=== PATIENT | female | born 1970 | race Caucasian/White ===

== ENCOUNTER → 2021-10-29 12:41 | Outpatient (CLI) | payer OTHER, MEDICAID, SELFPAY ==
--- NOTE | 2021-10-29 | PATH_ITS ---
Note [facility] Accession Number: [id number] TESTS RESULT FLAG UNITS REF RANGE LAB Clinician Provided Cytology Information No. of containers..01 Other (Miscellaneous) No. of containers..02 Previously Prepared Cytology Slide Source: LEFT THYROID NODULE DIAGNOSIS: LEFT THYROID NODULE NEGATIVE FOR MALIGNANT CELLS. B[place] CATEGORY II. SPECIMEN CONSISTS OF BENIGN FOLLICULAR CELLS, HEMOSIDERIN-LADEN MACROPHAGES, AND ABUNDANT COLLOID.THIS PATTERN IS CONSISTENT WITH A BENIGN FOLLICULAR NODULE. Pathologist ICD10: 01 E04.1 Clinical history: Right: Thyroid lobe measures 3.6 x 1.3 x 0.9 cm, and is homogeneous in echotexture. Left: Thyroid lobe measures 4.8 x 2.4 x 2.3 cm, and is homogenous in echotexture. Isthmus: 3.0 mm thick. IMPRESSION: New sub- cm right thyroid nodule, otherwise stable appearance of bilateral thyroid nodules. Signed out by: Ana Fleming MD, Pathologist NPI- [id number] Performed by: Goldy Sher, Duty Manager ([facility]) Gross description: 30 CC, COLORLESS, CLEAR RECIEVED: IN CYTOLYT WITH 6 ALCOHOL FIXED AND 6 QUICK STAINED SLIDES ALSO 1 RNA VIAL WAS RECEIVED. /VDU 10/30/2021 1243 Local FLAG LEGEND: L-Low Normal,H-High Normal,LL-Alert Low,HH-Alert High <-Panic Low,>-Panic High,A-Abnormal,AA-Critical Abnormal Performed at: 01 [facility] [address], [place] [address] Santiago Negron MD, Performed at: 01 [facility] [address], [place], [place] [id number] MD Santiago Negron MD Phone: [phone]
--- NOTE | 2021-10-29 | DI.US.S_ITS ---
PROCEDURE: US FINE NEEDLE ASPIRATION INDICATIONS: Nontoxic single thyroid nodule TECHNIQUE: The indications, alternatives, benefits, risks, and complications of the procedure were explained to the patient. Written informed consent was obtained and placed in the chart. The thyroid region was examined sonographically and a site was chosen for ultrasound guided percutaneous sampling. The skin was prepared and draped in the usual fashion, and anesthetized with 1% lidocaine infiltrated from the skin down to the thyroid gland. Multiple passes were then performed, with contents emptied into an appropriate pathology specimen container. A bandage was applied to the area of access at completion of the study. COMPARISON: [facility], US, US THYROID, 09/18/2021, 11:31. FINDINGS: Location(s) of lesion(s) sampled: Left lobe, mid-inferior. Nodule labeled as N5 on the previous exam. [place]: 25 and 22 gauge spinal needles. Number of passes: 6 Medications: 1% lidocaine for local anaesthesia. Complications: None. IMPRESSION: Successful ultrasound-guided thyroid nodule fine needle aspiration, with cytology results pending. Please see chart below for management recommendations based on cytology results. [facility] ReportingRecommendationsNon-diagnostic* Repeat US-guided FNA, with on-site cytology evaluation if possible. * Repeated non-diagnostic nodules without high suspicion US features: close observation vs surgical consult. * Consider surgery if nodule has high suspicion US features, grows >20% in 2 dimensions on followup, or patient has clinical risk factors for malignancy. Benign* If nodule has high suspicion US features: repeat US and FNA within 12 months. * If nodule has low to intermediate suspicion US features: repeat US at 12-24 months. If nodule grows (20% increase in at least 2 dimensions, with minimal increase of 2 mm or >50% change in volume), or development of new suspicious US features, then repeat FNA or continue followup. * If nodule has very low suspicion US features: followup US at >24 months. Atypia of undetermined significance, follicular lesion of undetermined significanceRepeat FNA, molecular testing, followup US, or surgical consult.Follicular neoplasm, suspicious for follicular neoplasmSurgical consult; also consider molecular testing. Suspicious for malignancySurgical consult.MalignantSurgical consult. Dictated by: Mani Meadows M.D. on 10/29/2021 at 16:18 Approved by: Mani Meadows M.D. on 10/29/2021 at 16:29
== END ==
PROVIDERS: Family Provider Family Medicine; PCP Nurse Practitioner Family; Referring Provider Nurse Practitioner Family; Visit Provider Nurse Practitioner Family
DX: E04.1 Nontoxic single thyroid nodule (principal)
CPT/HCPCS: 10005

== ENCOUNTER 2021-11-15 20:41 | Observation (INO) | payer OTHER, MEDICAID, SELFPAY ==
[2021-11-15] VITALS (13 sets, daily range): BP systolic 79–101; BP diastolic 43–66; PULSE 102–105; RESP 18–20; TEMP 36.5; O2SAT 94–100; BMI 39.2
--- NOTE | 2021-11-15 21:04 | DI.RAD.S_ITS ---
PROCEDURE: XR CHEST 1V INDICATIONS: chest pain TECHNIQUE: One view of the chest was acquired. COMPARISON: None. FINDINGS: Surgical changes and devices: None. Lungs and pleura: Lungs are clear. No pleural effusions or pneumothorax. Mediastinum: Mediastinal contours appear normal. Heart size is normal. Bones and chest wall: No suspicious bony lesions. Overlying soft tissues appear unremarkable. IMPRESSION: Normal for age, source of current chest pain symptoms is not seen. Dictated by: Graeme Cole M.D. on 11/15/2021 at 21:33 Approved by: Graeme Cole M.D. on 11/15/2021 at 21:33
[2021-11-15 21:16] LABS: Add Manual Diff / Slide Review NO; Basophils Absolute Auto 100 /uL (0-100); Basophils Percent Auto 1.1 % (0-2); Eosinophils Absolute Auto 300 /uL (0-450); Eosinophils Percent Auto 2.7 % (2-4); Hematocrit 36.7 % (36-46); Hemoglobin 12.2 g/dL (12.0-16.0); Lymphocytes Absolute Auto 2400 /uL (1100-4500); Lymphocytes Percent Auto 24.4 % (25-40); Mean Corpuscular HGB Conc 33.3 % (30-36); Mean Corpuscular Hemoglobin 30.4 PG (26-34); Mean Corpuscular Volume 91.3 fL (80-100); Monocytes Absolute Auto 700 /uL (0-900); Monocytes Percent Auto 6.8 % (3-14); Neutrophils Absolute Auto 6300 /uL (1500-7000); Platelet Count 241 X10^3/uL (150-400); Red Blood Cell Count 4.02 X10^6/uL (4.0-5.2); Red Cell Distribution Width 15.3 % (11.6-14.8); White Blood Cell Count 9.7 X10^3/uL (4.5-11.0)
[2021-11-15 21:20] LABS: Alanine Aminotransferase 26 IU/L (<35); Albumin Globulin Ratio 1.6 (1.0-2.8); Alkaline Phosphatase 101 U/L (38-126); Aspartate Aminotransferase 26 IU/L (14-36); BUN Creatinine Ratio 20.6 (6-22); Bilirubin Total 0.6 mg/dL (0.2-1.3); Blood Urea Nitrogen 49 mg/dL (7-17); Calcium 8.8 mg/dL (8.4-10.2); Carbon Dioxide 22 mmol/L (22-32); Chloride 102 mmol/L (98-107); Estimated Glomerular Filt Rate 24 mL/min (>60); Globulin 2.5 g/dL (1.7-4.1); Glucose 194 mg/dL (70-100); HEMOLYSIS 16 (0-50); Lipase 133 U/L (23-300); Magnesium 1.9 mg/dL (1.6-2.3); Potassium 4.9 mmol/L (3.4-5.1); Sodium 135 mmol/L (137-145); Total Protein 6.5 g/dL (6.3-8.2)
[2021-11-15] MEDS: ONDANSETRON 4 MG/2 ML INJ IV (21:20)
[2021-11-15] MEDS: diazePAM 10 MG/2 ML SYRINGE 5 MG IV (21:20)
[2021-11-15] MEDS: SODIUM CHLORIDE 0.9% 1,000 ML 1000 ML IV ×2 (21:20→23:11)
[2021-11-15 21:29] LABS: D Dimer 412 ng/mL (<230)
[2021-11-15 21:32] LABS: NT-proBNP (BNP-Adult 18+) 33 pg/mL (<125); Troponin I < 0.012 ng/mL (0.01-0.034)
--- NOTE | 2021-11-15 22:05 | ED_ITS ---
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 Apparently blood pressure was low and I was felt be appropriate to transfer her to [facility]. Initial blood pressure was 97/48 and with 900 cc total of fluid is up to 113/89. The patient is very vague in her complaints as well as timeline. She initially states that the headache started today than notes that it is from her chronic DJD and she has headaches frequently. She states that she has had chills but describes no cough or fevers. She describes her stomach cramping and says she has dark diarrhea last night. She notes exertional dyspnea increasing but can not describe if it is increasing over the last 24 hours or the last 24 weeks. 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 She has not noted palpitations or chest pain, no lower extremity edema Related Data Home Medications Medication Instructions Recorded Confirmed [aderall] ##0 10/08/16 [nabumatin] ##0 10/08/16 Allergies Allergy/AdvReac Type Severity Reaction Status Date / Time latex [LATEX] Allergy Mild RASH Verified 11/15/21 21:03 Penicillins [PENICILLINS] Allergy Mild RASH Verified 11/15/21 21:03 sulfamethoxazole Allergy Mild NAUSEA AND Verified 11/15/21 21:03 [SULFAMETHOXAZOLE] VOMITING Review of Systems Review of Systems Narrative: Remainder of complete review of systems is otherwise unremarkable except for that included in the HPI. Patient History Medical History (Updated 11/16/21 @ 00:24 by Jhoana Rowe MD) Degenerative joint disease of cervical spine Diabetes Hypertension Surgical History (Updated 11/15/21 @ 22:11 by Jhoana Rowe MD) History of appendectomy Social History Smoking Status: Former smoker Smoking Status: Former smoker Substance Use Type: does not use Exam Initial Vital Signs Initial Vital Signs: Vital Signs Pulse Rate 105 H 11/15/21 20:55 Pulse Oximetry 99 11/15/21 20:55 General: Healthy appearing, in mild distress and anxious. HEENT: Moist mucous membranes, normal sclera with reactive pupils, Neck: supple Respiratory: Lungs are clear to auscultation, no wheezing no rales no rhonchi. Full and symmetrical air movement Cardiac: Regular rate and rhythm no murmurs no bruits Abdomen: Soft, mildly distended but nontender, good bowel tones, no flank pain Skin: Warm and dry, no rashes Neurologic: Grossly neurologically intact with no obvious asymmetries or abnormalities Extremities: No trauma, well perfused, no asymmetric swelling Psych: Cooperative, appropriate insight and affect Course Orders Ordered: ED Orders 11/15/21 21:00 Complete Blood Count AUTO DIFF Stat Comprehensive Metabolic Panel Stat D Dimer Stat Lipase Stat Magnesium Stat NT-proBNP (BNP-Adult 18+) Stat Troponin I Stat 11/15/21 21:03 Urinalysis and Microscopic Stat 11/15/21 21:04 XR chest 1V Stat EKG-12 Lead Stat 11/15/21 21:08 Consult to [employer]ATOR - [employer] Stat 11/15/21 22:11 COVID19 -Nasal RAPID/Pre-Proc Stat 11/15/21 22:22 CT abdomen pelvis wo con Stat 11/15/21 23:19 CT head/brain wo con Stat Hydromorphone HCl (Hydromorphone 0.5 Mg Inj) 0.5 mg IV Q15MIN PRN PRN Reason: Pain, Last Admin: 11/15/21 23:51 Dose: 0.5 mg Documented By: JAMIA Discontinued Medications Diazepam (Diazepam 10 Mg/2 Ml Syringe) 5 mg IV NOW ONE Stop: 11/15/21 21:10 Last Admin: 11/15/21 21:20 Dose: 5 mg Documented By: JAMIA Sodium Chloride (Normal Saline 0.9%) 1,000 mls @ 1,000 mls/hr IV BOLUS ONE Stop: 11/15/21 22:02 Last Infusion: 11/15/21 23:11 Dose: 0 mls/hr Documented By: Admin: 11/15/21 21:20 Dose: 1,000 mls/hr Documented By: JAMIA Sodium Chloride (Normal Saline 0.9%) 1,000 mls @ 1,000 mls/hr IV BOLUS ONE Stop: 11/15/21 23:46 Last Admin: 11/15/21 23:11 Dose: 1,000 mls/hr Documented By: JAMIA Lorazepam (Lorazepam 2 Mg/Ml Inj) 0.5 mg IV NOW ONE Stop: 11/15/21 21:04 Last Admin: 11/15/21 21:10 Dose: Not Given Documented By: JAMIA Ondansetron HCl (Ondansetron 4 Mg/2 Ml Inj) 4 mg IV NOW ONE Stop: 11/15/21 21:04 Last Admin: 11/15/21 21:20 Dose: 4 mg Documented By: JAMIA Vital Signs Vital signs: Vital Signs - 8 hr 11/15/21 21:04 11/15/21 20:55 11/15/21 21:00 Temperature 97.7 F Pulse Rate 105 H 105 H Respiratory Rate 18 Blood Pressure 101/66 97/53 L Pulse Oximetry 100 99 Oxygen Delivery Method Room Air 11/15/21 21:00 11/15/21 21:30 11/15/21 21:30 Temperature Pulse Rate 104 H 103 H Respiratory Rate 20 Blood Pressure 94/52 L Pulse Oximetry 97 95 Oxygen Delivery Method 11/15/21 22:00 11/15/21 22:00 11/15/21 22:01 Temperature Pulse Rate 103 H Respiratory Rate Blood Pressure 79/43 L 88/47 L Pulse Oximetry 95 Oxygen Delivery Method 11/15/21 22:01 Temperature Pulse Rate 103 H Respiratory Rate Blood Pressure Pulse Oximetry 94 Oxygen Delivery Method Medical Decision Making Lab Data Result diagrams: 11/15/21 21:00 11/15/21 21:00 Labs: Lab Results 11/15/21 11/15/21 11/15/21 Range/Units 21:00 21:00 21:00 WBC 9.7 (4.5-11.0) X10^3/uL RBC 4.02 (4.0-5.2) X10^6/uL Hgb 12.2 (12.0-16.0) g/dL Hct 36.7 (36-46) % MCV 91.3 (80-100) fL MCH 30.4 (26-34) PG MCHC 33.3 (30-36) % RDW 15.3 H (11.6-14.8) % Plt Count 241 (150-400) X10^3/uL Neut % (Auto) 65.0 (50-75) % Lymph % (Auto) 24.4 L (25-40) % [place] % (Auto) 6.8 (3-14) % Eos % (Auto) 2.7 (2-4) % Baso % (Auto) 1.1 (0-2) % Neut # (Auto) 6300 (0931-5727) /uL Lymph # (Auto) 2400 (0233-8678) /uL [place] # (Auto) 700 (0-900) /uL Eos # (Auto) 300 (0-450) /uL Baso # (Auto) 100 (0-100) /uL D-Dimer 412 H (<230) ng/mL Sodium 135 L (137-145) mmol/L Potassium 4.9 (3.4-5.1) mmol/L Chloride 102 (98-107) mmol/L Carbon Dioxide 22 (22-32) mmol/L BUN 49 H (7-17) mg/dL Creatinine 2.38 H (0.52-1.04) mg/dL Estimated GFR 24 L (>60) mL/min BUN/Creatinine Ratio 20.6 (6-22) Glucose 194 H (70-100) mg/dL Calcium 8.8 (8.4-10.2) mg/dL Magnesium 1.9 (1.6-2.3) mg/dL Total Bilirubin 0.6 (0.2-1.3) mg/dL AST 26 (14-36) IU/L ALT 26 (<35) IU/L Alkaline Phosphatase 101 (38-126) U/L Troponin I < 0.012 (0.01-0.034) ng/mL NT-Pro-B Natriuret Pep 33 (<125) pg/mL Total Protein 6.5 (6.3-8.2) g/dL Albumin 4.0 (3.5-5.0) g/dL Globulin 2.5 (1.7-4.1) g/dL Albumin/Globulin Ratio 1.6 (1.0-2.8) Lipase 133 (23-300) U/L SARS-CoV-2 (PCR) (Negative) 11/15/21 Range/Units 22:11 WBC (4.5-11.0) X10^3/uL RBC (4.0-5.2) X10^6/uL Hgb (12.0-16.0) g/dL Hct (36-46) % MCV (80-100) fL MCH (26-34) PG MCHC (30-36) % RDW (11.6-14.8) % Plt Count (150-400) X10^3/uL Neut % (Auto) (50-75) % Lymph % (Auto) (25-40) % [place] % (Auto) (3-14) % Eos % (Auto) (2-4) % Baso % (Auto) (0-2) % Neut # (Auto) (2888-5758) /uL Lymph # (Auto) (4817-4677) /uL [place] # (Auto) (0-900) /uL Eos # (Auto) (0-450) /uL Baso # (Auto) (0-100) /uL D-Dimer (<230) ng/mL Sodium (137-145) mmol/L Potassium (3.4-5.1) mmol/L Chloride (98-107) mmol/L Carbon Dioxide (22-32) mmol/L BUN (7-17) mg/dL Creatinine (0.52-1.04) mg/dL Estimated GFR (>60) mL/min BUN/Creatinine Ratio (6-22) Glucose (70-100) mg/dL Calcium (8.4-10.2) mg/dL Magnesium (1.6-2.3) mg/dL Total Bilirubin (0.2-1.3) mg/dL AST (14-36) IU/L ALT (<35) IU/L Alkaline Phosphatase (38-126) U/L Troponin I (0.01-0.034) ng/mL NT-Pro-B Natriuret Pep (<125) pg/mL Total Protein (6.3-8.2) g/dL Albumin (3.5-5.0) g/dL Globulin (1.7-4.1) g/dL Albumin/Globulin Ratio (1.0-2.8) Lipase (23-300) U/L SARS-CoV-2 (PCR) Negative (Negative) Imaging Data Chest x-ray: Radiologist's Impression: FINDINGS:? ? Surgical changes and devices:? None.? ? Lungs and pleura:? Lungs are clear.? No pleural effusions or pneumothorax.? ? Mediastinum:? Mediastinal contours appear normal.? Heart size is normal.? ? Bones and chest wall:? No suspicious bony lesions.? Overlying soft tissues appear unremarkable.? ? IMPRESSION:? Normal for age, source of current chest pain symptoms is not seen. ? ? Dictated by: Graeme Cole M.D. on 11/15/2021 at 21:33 ? ? CT scan - head: Radiologist's Impression: FINDINGS:? Image quality:? Excellent.? ? CSF spaces:? Basal cisterns are patent.? No extra-axial fluid collections.? Ventricles are normal in size and shape.? ? Brain:? No midline shift.? No intracranial masses or hemorrhage.? Gallegos-white matter interface is normal.? ? Skull and face:? Calvarium and visualized facial bones are intact, without suspicious lesions.? ? Sinuses:? Visualized sinuses and mastoids are clear.? ? IMPRESSION:? Normal for age, source of current pain symptoms is not seen. ? ? Dictated by: Graeme Cole M.D. on 11/16/2021 at 0:08 ? ? CT scan - abdomen/pelvis: Radiologist's Impression: FINDINGS:? Image quality:? Excellent.? ? CSF spaces:? Basal cisterns are patent.? No extra-axial fluid collections.? Ventricles are normal in size and shape.? ? Brain:? No midline shift.? No intracranial masses or hemorrhage.? Gallegos-white matter interface is normal.? ? Skull and face:? Calvarium and visualized facial bones are intact, without suspicious lesions.? ? Sinuses:? Visualized sinuses and mastoids are clear.? ? IMPRESSION:? Normal for age, source of current pain symptoms is not seen. ? ? Dictated by: Graeme Cole M.D. on 11/16/2021 at 0:08 ? ? MDM Narrative Medical decision making narrative: 51-year-old woman with abdominal pain dizziness hypotension and difficulty in pending down timing of her overall symptoms. Continues to be increasingly hypotensive with creatinine elevated at 2.38. I have no comparison labs and she is not sure where the lab work from work is is sent for follow-up. Given her continued cramping pain the recurrent hypotension despite fluid boluses will moved to CT scanning. There is no sign of active bleeding. D-dimer is elevated at 412 however at 51 her D-dimer can correct up to 510 and still be within normal ranges. As her new kidney failure was identified, contrast for PE study is not going to be appropriate from the emergency department. This point, I still do not have a full understanding for her orthostasis, acute kidney injury a near syncopal episode. There is no evidence of overwhelming infection, acute coronary syndrome pulmonary embolism, internal hemorrhage. Have suggested that she be admitted for continued IV hydration and further evaluation with repeat blood draw tomorrow morning to check on renal function. Case is reviewed with Dr. Adams, hospitalist and she is admitted to the hospitalist service. Recommendations reviewed with patient and questions are answered. She is safe for transfer to floor Discharge Plan Departure Patient Disposition: Admitted as Observation Clinical Impression: Syncope due to orthostatic hypotension, Acute dehydration, Acute kidney injury Prescriptions: No Action [aderall] Qty: 0 [nabumatin] Qty: 0 Referrals: Diana Harris ARNP [Primary Care Provider] -
--- NOTE | 2021-11-15 22:22 | DI.CT.S_ITS ---
PROCEDURE: CT ABDOMEN PELVIS WO CON INDICATIONS: abdominal pain, hypotension, new acute renal failure TECHNIQUE: Noncontrast 5 mm thick sections acquired from the diaphragms to the symphysis. 5 mm coronal and sagittal reformats were then performed. For radiation dose reduction, the following was used: automated exposure control, adjustment of mA and/or kV according to patient size. COMPARISON: None. FINDINGS: Image quality: Limited by the absence of both oral and intravenous contrast. ABDOMEN: Lung bases: Lung bases are clear. Heart size is normal. Solid organs: Liver is normal in size. Gallbladder appears normal . Pancreas is normal in contours. Spleen is normal in size. No adrenal nodules. Kidneys are normal in size, without hydronephrosis or nephrolithiasis. Peritoneum and bowel: Unenhanced bowel loops demonstrate normal wall thickness and caliber. No free fluid or air. Nodes and vessels: No retroperitoneal or mesenteric adenopathy by size criteria. Aorta and inferior vena cava are normal in caliber. Miscellaneous: No ventral hernias. PELVIS: Genitourinary: Bladder wall thickness is normal. Miscellaneous: No inguinal hernias or adenopathy. Multiple surgical clips right lower quadrant suggest prior appendectomy. Bones: No suspicious bony lesions. No vertebral body compression fractures. IMPRESSION: No hydronephrosis or nephrolithiasis found. No acute disease over the abdomen and pelvis is suspected. Probable prior appendectomy given the pattern of surgical clips at the right lower quadrant. Dictated by: Graeme Cole M.D. on 11/16/2021 at 0:10 Approved by: Graeme Cole M.D. on 11/16/2021 at 0:11
[2021-11-15 22:31] LABS: COVID19 -Nasal RAPID Negative (Negative)
--- NOTE | 2021-11-15 23:19 | DI.CT.S_ITS ---
PROCEDURE: CT HEAD/BRAIN WO CON INDICATIONS: pain TECHNIQUE: Noncontrast 4.5 mm thick angled axial sections acquired from the foramen magnum to the vertex, with coronal and sagittal reformats. For radiation dose reduction, the following was used: automated exposure control, adjustment of mA and/or kV according to patient size. COMPARISON: None. FINDINGS: Image quality: Excellent. CSF spaces: Basal cisterns are patent. No extra-axial fluid collections. Ventricles are normal in size and shape. Brain: No midline shift. No intracranial masses or hemorrhage. Gallegos-white matter interface is normal. Skull and face: Calvarium and visualized facial bones are intact, without suspicious lesions. Sinuses: Visualized sinuses and mastoids are clear. IMPRESSION: Normal for age, source of current pain symptoms is not seen. Dictated by: Graeme Cole M.D. on 11/16/2021 at 0:08 Approved by: Graeme Cole M.D. on 11/16/2021 at 0:09
[2021-11-15] MEDS: HYDROMORPHONE 0.5 MG INJ IV (23:51)
[2021-11-16] VITALS (19 sets, daily range): BP systolic 87–137; BP diastolic 48–92; PULSE 104–119; RESP 17–20; TEMP 35.8–36.6; O2SAT 91–98; BMI 39.2
[2021-11-16] MEDS: SODIUM CHLORIDE 0.9% 1,000 ML 200 ML IV (00:35)
--- NOTE | 2021-11-16 02:40 | PC.NURSE ---
pt assisted up to the bsc
[2021-11-16] MEDS: SODIUM CHLORIDE 0.9% 1,000 ML 1000 ML IV (03:14)
[2021-11-16 03:26] LABS: Creatinine Urine Random 83.3 mg/dL; Sodium Urine Random 66 mmol/L (30-90)
[2021-11-16] MEDS: ACETAMINOPHEN 325 MG TABLET 650 MG PO (03:26)
[2021-11-16] MEDS: SODIUM CHLORIDE 0.9% 1,000 ML 250 ML IV ×3 (04:30→14:01)
--- NOTE | 2021-11-16 05:12 | DI.ECHO.S_ITS ---
[facility]---------+ [facility] +---------+ : : [address] [place] [place] : : : : [id number] : : : : Phone: [phone]+ Echocardiogram Report + + :Name: JULIO ELENA Study Date: 11/16/2021 Height: 23.5 in: :[facility] ReadingLocation: Weight: 200 lb : : Gender: Female BSA: 0.95 m2 : :: 1970 Age: 51 yrs : :Reason For Study: HYPOTENSION, TACHYCARDIA : : Performed By: Ashley Ellis : :Referring: LEIGHANN DE LUNA : + + Interpretation Summary The patient was in sinus tachycardia with heart rates between 113-116 bpm during the exam. The left ventricle is normal in size and wall thickness. The ejection fraction is estimated to be 65-70%. The right ventricle is not well visualized. Visually RV does not appears to be dilated however RV function appears to be decreased. Cannot comment upon pulmonary artery systolic pressure however Doppler profile across pulmonary valve suggest possibility of pulmonary hypertension. In view of sinus tachycardia, decreased RV function and possibility of pulmonary hypertension, consider work-up to rule out pulmonary embolism. There is mild tricuspid regurgitation. The IVC is dilated (diameter is greater than 2.1 cm) and it collapses less than 50% with a sniff. This suggests a high right atrial pressure of 15 mm Hg. Procedure: A two-dimensional transthoracic echocardiogram with color flow and Doppler was performed. The study quality was technically difficult. Patient is unable to cooperate and is supine for the exam. There is no prior echocardiogram noted for this patient. The patient was in sinus tachycardia with heart rates between 113-116 bpm during the exam. Left Ventricle: The left ventricle is normal in size and wall thickness. There is no thrombus. The ejection fraction is estimated to be 65-70%. Septal motion is consistent with conduction abnormality. Diastolic function could not be accurately assessed due to tachycardia. Right Ventricle: The right ventricle is not well visualized. Visually RV does not appears to be dilated however RV function appears to be decreased. Cannot comment upon pulmonary artery systolic pressure however Doppler profile across pulmonary valve suggest possibility of pulmonary hypertension. In view of sinus tachycardia, decreased RV function and possibility of pulmonary hypertension, consider work-up to rule out pulmonary embolism. Atria: The left atrium is not well visualized. Right atrium not well visualized. There is no Doppler evidence for an interatrial shunt. Mitral Valve: There is mild mitral annular calcification. There is trace mitral regurgitation. Aortic Valve: The aortic valve opens well. There is mild aortic valve sclerosis. The aortic valve is not well visualized. There is no aortic valve stenosis. No aortic regurgitation is present. Tricuspid Valve: The tricuspid valve is not well visualized. There is mild tricuspid regurgitation. Pulmonary artery pressures cannot be estimated because of the lack of a measurable TR jet velocity. Pulmonic Valve: The pulmonic valve is not well visualized. Great Vessels: The aortic root is normal size. The ascending aorta is normal in size. The aortic arch could not be visualized. The pulmonary is not well visualized. The IVC is dilated (diameter is greater than 2.1 cm) and it collapses less than 50% with a sniff. This suggests a high right atrial pressure of 15 mm Hg. Pericardium/ Pleura There is a trivial pericardial effusion noted. There are no echocardiographic indications of cardiac tamponade. There is no pleural effusion. MMode/2D Measurements & Calculations LVIDd: 4.1 cm LVOT diam: 2.3 cm LVIDs: 2.9 cm Ao root diam: 3.3 cm FS: 29.5 % asc Aorta Diam: 3.0 cm EPSS: 0.32 cm IVSd: 0.89 cm LVPWd: 0.89 cm LV myers. diameter/BSA (cm/m^2): 4.3 LV sys. diameter/BSA (cm/m^2): 3.0 IVC diam: 1.8 cm Doppler Measurements & Calculations Ao V2 max: 107.3 cm/sec LVOT Max Jesus: 76.7 cm/sec Ao V2 mean: 75.9 cm/sec LV V1 max P.4 mmHg Ao max P.6 mmHg LV V1 VTI: 9.9 cm Ao mean P.4 mmHg RACHEL(I,D): 2.3 cm2 Ao V2 VTI: 17.4 cm RACHEL(V,D): 2.9 cm2 sev ratio: 0.57 RACHEL indexed to BSA (cm^2/m^2): 2.4 TR max jesus: 194.8 cm/sec SV(LVOT): 40.4 ml TR max P.2 mmHg Reading Physician:12:43 PM
--- NOTE | 2021-11-16 05:14 | PM.HP.1 ---
History of Present Illness History of Present Illness Date Patient Seen: 11/16/21 Time Patient Seen: 04:00 Chief complaint: hypotension/headache Narrative: Ms. Felix is a 51W with PMH fibromyalgia, hx PE/DVT multiple times, HTN, Type 2 DM who presents with vague symptoms. The patient can not provide a clear story to me as to why she is here. She on open ended questioning states she was short of breath Wednesday and that that's about it. In the ED it was noted she was in a store and was complaining of headache, stomach pain and dizziness. Upon asking that she does confirm. She states she thought she ate some bad food on Wednesday and she had diarrhea and vomiting. She felt quite thirsty. She has chronic pain and takes nabumetone and oxycodone. In addition to this she is also occasionally takes acyclovir for HSV, amitryptiline. She also takes gabapentin for pain. And she takes lisinopril-HCTZ. She does not think any of these medications are new. She denies taking additional NSAIDs above these. She has no fevers/chills. No chest pain. She is currently not short of breath. Looking through PCP records she has chronic tachycardia in the 100s, with etiology still not clear. In the ED workup was done, vitals notable for normal temp, tachycardia in the 100s, blood pressure in the systolic 80s-90s. Labs notable for WBC 9.7, hgb 12.2, plts 241. BUN 49, creatinine 2.38. D-dimer 412. Troponin negative. COVID negative. Chest xray negative. CT head negative. CT abdomen/pelvis without contrast with no acute process. She was ordered for IV fluids and admitted for further treatment. Patient History Medical History Degenerative joint disease of cervical spine Diabetes Hypertension Surgical History History of appendectomy Family & Social History Social History: household members none Prior Living Arrangements RV Safety & Behavioral: Feels Safe in Current Yes Environment Been Physically Hurt or No Threatened By a Person Tobacco & Substance use: Smoking Status Former smoker alcohol intake never alcohol intake frequency holiday/special occasion Substance Use Type does not use Meds Home Medications and Allergies Home Medications Medication Instructions Recorded Confirmed Type [nabumatin] 500 mg PO BID ##0 10/08/16 11/16/21 History amitriptyline 50 mg tablet 50 tab PO 3XD insomnia 11/16/21 11/16/21 History apixaban 5 mg tablet (Eliquis) 5 tab PO BID 11/16/21 11/16/21 History atorvastatin 20 mg tablet 20 tab PO BEDTIME 11/16/21 11/16/21 History azelastine 137 mcg (0.1 %) nasal 137 spray intranasal PRN PRN 11/16/21 11/16/21 History spray aerosol Allergy Symptoms citalopram 40 mg tablet 40 tab PO DAILY 11/16/21 11/16/21 History empagliflozin 10 mg tablet 10 tab PO DAILY 11/16/21 11/16/21 History (Jardiance) gabapentin 300 mg capsule 900 cap PO QAM 11/16/21 11/16/21 History gabapentin 300 mg tablet 1,800 mg PO BEDTIME 11/16/21 11/16/21 History loratadine 10 mg tablet (Allergy 10 tab PO DAILY allergy 11/16/21 11/16/21 History Relief (loratadine)) oxycodone 5 mg tablet 5 tab PO Q6H pain 11/16/21 11/16/21 History propranolol 10 mg tablet 10 tab PO TID PRN Anxiety 11/16/21 11/16/21 History sitagliptin 25 mg tablet (Januvia) 25 tab PO DAILY 11/16/21 11/16/21 History tizanidine 2 mg tablet 2 tab PO Q8H PRN Muscle Spasm 11/16/21 11/16/21 History Allergies Allergy/AdvReac Type Severity Reaction Status Date / Time latex [LATEX] Allergy Mild RASH Verified 11/15/21 21:03 Penicillins [PENICILLINS] Allergy Mild RASH Verified 11/15/21 21:03 sulfamethoxazole Allergy Mild NAUSEA AND Verified 11/15/21 21:03 [SULFAMETHOXAZOLE] VOMITING Review of Systems Review of Systems Narrative: 14 systems reviewed and negative aside from what is noted in HPI Exam Vital Signs (past 8 hours): - 11/15/21 21:30 11/15/21 21:30 11/15/21 22:00 Temperature Pulse Rate 103 H Pulse Rate [Orthostatic Lying] Pulse Rate [Orthostatic Sitting] Pulse Rate [Orthostatic Standing] Respiratory Rate Blood Pressure 94/52 L 79/43 L Blood Pressure [Orthostatic Lying] Blood Pressure [Orthostatic Sitting] Blood Pressure [Orthostatic Standing] Pulse Oximetry 95 Oxygen Delivery Method Oxygen Flow Rate 11/15/21 22:00 11/15/21 22:01 11/15/21 22:01 Temperature Pulse Rate 103 H 103 H Pulse Rate [Orthostatic Lying] Pulse Rate [Orthostatic Sitting] Pulse Rate [Orthostatic Standing] Respiratory Rate Blood Pressure 88/47 L Blood Pressure [Orthostatic Lying] Blood Pressure [Orthostatic Sitting] Blood Pressure [Orthostatic Standing] Pulse Oximetry 95 94 Oxygen Delivery Method Oxygen Flow Rate 11/15/21 22:15 11/15/21 22:15 11/15/21 22:30 Temperature Pulse Rate 102 H Pulse Rate [Orthostatic Lying] Pulse Rate [Orthostatic Sitting] Pulse Rate [Orthostatic Standing] Respiratory Rate Blood Pressure 85/47 L 86/49 L Blood Pressure [Orthostatic Lying] Blood Pressure [Orthostatic Sitting] Blood Pressure [Orthostatic Standing] Pulse Oximetry 95 Oxygen Delivery Method Oxygen Flow Rate 11/15/21 22:30 11/15/21 22:45 11/15/21 22:45 Temperature Pulse Rate 103 H 104 H Pulse Rate [Orthostatic Lying] Pulse Rate [Orthostatic Sitting] Pulse Rate [Orthostatic Standing] Respiratory Rate Blood Pressure 88/50 L Blood Pressure [Orthostatic Lying] Blood Pressure [Orthostatic Sitting] Blood Pressure [Orthostatic Standing] Pulse Oximetry 96 96 Oxygen Delivery Method Oxygen Flow Rate 11/15/21 23:00 11/15/21 23:00 11/15/21 23:15 Temperature Pulse Rate 103 H Pulse Rate [Orthostatic Lying] Pulse Rate [Orthostatic Sitting] Pulse Rate [Orthostatic Standing] Respiratory Rate Blood Pressure 91/51 L 95/50 L Blood Pressure [Orthostatic Lying] Blood Pressure [Orthostatic Sitting] Blood Pressure [Orthostatic Standing] Pulse Oximetry 98 Oxygen Delivery Method Oxygen Flow Rate 11/15/21 23:15 11/15/21 23:30 11/15/21 23:30 Temperature Pulse Rate 102 H 103 H Pulse Rate [Orthostatic Lying] Pulse Rate [Orthostatic Sitting] Pulse Rate [Orthostatic Standing] Respiratory Rate Blood Pressure 94/53 L Blood Pressure [Orthostatic Lying] Blood Pressure [Orthostatic Sitting] Blood Pressure [Orthostatic Standing] Pulse Oximetry 99 99 Oxygen Delivery Method Oxygen Flow Rate 11/15/21 23:45 11/15/21 23:45 11/16/21 00:05 Temperature Pulse Rate 104 H 104 H Pulse Rate [Orthostatic Lying] Pulse Rate [Orthostatic Sitting] Pulse Rate [Orthostatic Standing] Respiratory Rate Blood Pressure 101/53 L Blood Pressure [Orthostatic Lying] Blood Pressure [Orthostatic Sitting] Blood Pressure [Orthostatic Standing] Pulse Oximetry 98 98 Oxygen Delivery Method Oxygen Flow Rate 11/16/21 00:06 11/16/21 00:06 11/16/21 00:15 Temperature Pulse Rate 105 H Pulse Rate [Orthostatic Lying] Pulse Rate [Orthostatic Sitting] Pulse Rate [Orthostatic Standing] Respiratory Rate Blood Pressure 101/59 L 100/51 L Blood Pressure [Orthostatic Lying] Blood Pressure [Orthostatic Sitting] Blood Pressure [Orthostatic Standing] Pulse Oximetry 97 Oxygen Delivery Method Oxygen Flow Rate 11/16/21 00:15 11/16/21 00:30 11/16/21 00:30 Temperature Pulse Rate 108 H 105 H Pulse Rate [Orthostatic Lying] Pulse Rate [Orthostatic Sitting] Pulse Rate [Orthostatic Standing] Respiratory Rate Blood Pressure 87/50 L Blood Pressure [Orthostatic Lying] Blood Pressure [Orthostatic Sitting] Blood Pressure [Orthostatic Standing] Pulse Oximetry 94 98 Oxygen Delivery Method Oxygen Flow Rate 11/16/21 00:45 11/16/21 00:45 11/16/21 01:00 Temperature Pulse Rate 108 H 109 H Pulse Rate [Orthostatic Lying] Pulse Rate [Orthostatic Sitting] Pulse Rate [Orthostatic Standing] Respiratory Rate Blood Pressure 92/53 L Blood Pressure [Orthostatic Lying] Blood Pressure [Orthostatic Sitting] Blood Pressure [Orthostatic Standing] Pulse Oximetry 94 91 Oxygen Delivery Method Oxygen Flow Rate 11/16/21 01:00 11/16/21 01:15 11/16/21 01:15 Temperature Pulse Rate 109 H Pulse Rate [Orthostatic Lying] Pulse Rate [Orthostatic Sitting] Pulse Rate [Orthostatic Standing] Respiratory Rate Blood Pressure 88/51 L 103/48 L Blood Pressure [Orthostatic Lying] Blood Pressure [Orthostatic Sitting] Blood Pressure [Orthostatic Standing] Pulse Oximetry 92 Oxygen Delivery Method Oxygen Flow Rate 11/16/21 01:30 11/16/21 01:30 11/16/21 01:45 Temperature Pulse Rate 110 H 108 H Pulse Rate [Orthostatic Lying] Pulse Rate [Orthostatic Sitting] Pulse Rate [Orthostatic Standing] Respiratory Rate Blood Pressure 100/54 L Blood Pressure [Orthostatic Lying] Blood Pressure [Orthostatic Sitting] Blood Pressure [Orthostatic Standing] Pulse Oximetry 93 94 Oxygen Delivery Method Oxygen Flow Rate 11/16/21 01:45 11/16/21 02:00 11/16/21 02:00 Temperature Pulse Rate 107 H Pulse Rate [Orthostatic Lying] Pulse Rate [Orthostatic Sitting] Pulse Rate [Orthostatic Standing] Respiratory Rate Blood Pressure 111/55 L 105/55 L Blood Pressure [Orthostatic Lying] Blood Pressure [Orthostatic Sitting] Blood Pressure [Orthostatic Standing] Pulse Oximetry 94 Oxygen Delivery Method Oxygen Flow Rate 11/16/21 02:15 11/16/21 02:15 11/16/21 02:55 Temperature Pulse Rate 107 H Pulse Rate [Orthostatic Lying] 113 H Pulse Rate [Orthostatic Sitting] 109 H Pulse Rate [Orthostatic Standing] 115 H Respiratory Rate Blood Pressure 97/54 L Blood Pressure [Orthostatic Lying] 92/60 Blood Pressure [Orthostatic Sitting] 113/72 Blood Pressure [Orthostatic Standing] 99/55 L Pulse Oximetry 95 Oxygen Delivery Method Oxygen Flow Rate 11/16/21 02:55 11/16/21 01:42 Temperature 96.8 F L Pulse Rate 114 H Pulse Rate [Orthostatic Lying] Pulse Rate [Orthostatic Sitting] Pulse Rate [Orthostatic Standing] Respiratory Rate 20 Blood Pressure 92/60 Blood Pressure [Orthostatic Lying] Blood Pressure [Orthostatic Sitting] Blood Pressure [Orthostatic Standing] Pulse Oximetry 97 Oxygen Delivery Method Room Air Oxygen Flow Rate 0 Oxygen Delivery Method Room Air Oxygen Flow Rate 0 Narrative Exam Narrative: GEN: mild distress from pain HEENT: dry mucous membranes, PERRL NECK: trachea midline, no JVD CV: tachcyardic, no murmurs PULM: clear bilaterally, no wheezes, rhonchi, rales ABD: soft, nontender, nondistended, no organomegaly EXT: warm and well perfused, with no edema NEURO: awake, alert, oriented, no focal deficits, no nuchal rigidity Objective Labs Result Diagrams: 11/15/21 21:00 11/15/21 21:00 Labs: Laboratory Results - last 24 hr 11/15/21 11/15/21 11/15/21 21:00 21:00 21:00 WBC 9.7 RBC 4.02 Hgb 12.2 Hct 36.7 MCV 91.3 MCH 30.4 MCHC 33.3 RDW 15.3 H Plt Count 241 Neut % (Auto) 65.0 Lymph % (Auto) 24.4 L [place] % (Auto) 6.8 Eos % (Auto) 2.7 Baso % (Auto) 1.1 Neut # (Auto) 6300 Lymph # (Auto) 2400 Perkins # (Auto) 700 Eos # (Auto) 300 Baso # (Auto) 100 D-Dimer 412 H Sodium 135 L Potassium 4.9 Chloride 102 Carbon Dioxide 22 BUN 49 H Creatinine 2.38 H Estimated GFR 24 L BUN/Creatinine Ratio 20.6 Glucose 194 H Calcium 8.8 Magnesium 1.9 Total Bilirubin 0.6 AST 26 ALT 26 Alkaline Phosphatase 101 Troponin I < 0.012 NT-Pro-B Natriuret Pep 33 Total Protein 6.5 Albumin 4.0 Globulin 2.5 Albumin/Globulin Ratio 1.6 Lipase 133 Ur Random Sodium Urine Creatinine SARS-CoV-2 (PCR) 11/15/21 11/16/21 22:11 03:07 WBC RBC Hgb Hct MCV MCH MCHC RDW Plt Count Neut % (Auto) Lymph % (Auto) Perkins % (Auto) Eos % (Auto) Baso % (Auto) Neut # (Auto) Lymph # (Auto) Perkins # (Auto) Eos # (Auto) Baso # (Auto) D-Dimer Sodium Potassium Chloride Carbon Dioxide BUN Creatinine Estimated GFR BUN/Creatinine Ratio Glucose Calcium Magnesium Total Bilirubin AST ALT Alkaline Phosphatase Troponin I NT-Pro-B Natriuret Pep Total Protein Albumin Globulin Albumin/Globulin Ratio Lipase Ur Random Sodium 66 Urine Creatinine 83.3 SARS-CoV-2 (PCR) Negative Assessment & Plan Assessment & Plan narrative: Ms. Felix is a 51W with PMH HTN, DM, fibromyalgia who presents with multiple concerns found to be hypotensive. 1. Hypotension -etiology not certain -doubt infection no fever, normal wbc -suspect hypovolemia secondary to possible recent GI illness in setting of continued BP med use -continue IV fluids as patient clinically dehydrated -hold off on antibiotics -hold lisinopril-hctz -ordered ECHO, doubt pericardial effusion, but rule out with ECHO -with history of PE and vague complaints of sob ordered VQ scan, but is on anticoagulation so suspect this is less likely -check AM cortisol 2. Tachycardia -per PCP notes, this is chronic issue -regardless continue IV fluid resuscitation -rule out PE with VQ scan -check tsh 3. Headache -suspect secondary to fibromyalgia or hypovolemia -continue fluid resuscitation -doubt infectious cause, but monitor closely for indication for LP or antibiotics 4. AKASH -imaging shows no evidence of obstruction -suspect hypovolemia -continue IV fluids -check urine creatinine, sodium -may also be ATN in setting of taking multiple nephrotoxic home meds -hold amitryptiline, oral DM meds, acyclovir, lisinopril-hctz 5. Type 2 Diabetes -hold oral DM meds -ordered insulin sliding scale 6. Obesity -BMI 39 -follow up as outpatient 7. HTN -hold BP meds 8. Chronic pain -NSAIDs contraindicated due to elevated creatinine -hold opiates for now given hypotension 9. Anxiety -careful with benzos, did receive in ED 10. Hx of VTE -continue apixaban CODE: Full Proxy: Jay Jay Yi, friend I have utilized all available resources to reconcile the patient's home medications. Time Spent With Patient Critical Care time: I spent a total of [] minutes of critical care time on this patient's care today; this time is exclusive of procedural time. Quality VTE Deep Vein Thrombosis/Pulmonary Embolism Present on Admission: No
[2021-11-16 06:39] LABS: Appearance Urine UA CLEAR; Bilirubin Urine UA NEGATIVE (NEGATIVE); Color Urine UA YELLOW; Glucose Urine UA 2+ g/dL (Negative); Ketones Urine UA NEGATIVE (NEGATIVE); Leukocyte Esterase Urine UA 1+ (NEGATIVE); Nitrite Urine UA NEGATIVE (Negative); Occult Blood Urine UA NEGATIVE (Negative); Protein Urine UA NEGATIVE (Negative); Urobilinogen Urine UA 0.2 E.U./dL (0.2)
[2021-11-16 06:54] LABS: Add Manual Diff / Slide Review NO; Basophils Absolute Auto 0 /uL (0-100); Basophils Percent Auto 0.6 % (0-2); Eosinophils Absolute Auto 300 /uL (0-450); Eosinophils Percent Auto 4.1 % (2-4); Hematocrit 33.2 % (36-46); Hemoglobin 11.1 g/dL (12.0-16.0); Lymphocytes Absolute Auto 2400 /uL (1100-4500); Lymphocytes Percent Auto 36.1 % (25-40); Mean Corpuscular HGB Conc 33.4 % (30-36); Mean Corpuscular Hemoglobin 30.6 PG (26-34); Mean Corpuscular Volume 91.7 fL (80-100); Monocytes Absolute Auto 500 /uL (0-900); Monocytes Percent Auto 7.1 % (3-14); Neutrophils Absolute Auto 3500 /uL (1500-7000); Neutrophils Percent Auto 52.1 % (50-75); Platelet Count 208 X10^3/uL (150-400); Red Blood Cell Count 3.62 X10^6/uL (4.0-5.2); Red Cell Distribution Width 15.3 % (11.6-14.8); White Blood Cell Count 6.7 X10^3/uL (4.5-11.0)
[2021-11-16 07:03] LABS: Bacteria Urine None Seen; RBC Urine None Seen (0-5/HPF); Squamous Epithelial Cell Urine 0-1 /HPF (0-5/HPF); WBC Urine 5-10/HPF (0-5/HPF)
[2021-11-16 07:04] LABS: Culture Indicated Urine Specimen Cultured
[2021-11-16 07:16] LABS: BUN Creatinine Ratio 26.4 (6-22); Blood Urea Nitrogen 32 mg/dL (7-17); Calcium 7.7 mg/dL (8.4-10.2); Carbon Dioxide 22 mmol/L (22-32); Chloride 113 mmol/L (98-107); Estimated Glomerular Filt Rate 54 mL/min (>60); Glucose 151 mg/dL (70-100); HEMOLYSIS < 15 (0-50); Potassium 4.5 mmol/L (3.4-5.1); Sodium 138 mmol/L (137-145)
[2021-11-16 07:29] LABS: Troponin I < 0.012 ng/mL (0.01-0.034)
--- NOTE | 2021-11-16 07:34 | PC.NURSE ---
Admit/NOC Shift Note- Patient arrived to room via wheelchair at 0250 from ER. Admit questions done, medications reviewed, physical assessment done, and ski check completed. Patient oriented to bed and bed bed controls, room,lights, menu, phone, and call mcnulty/tv remote. Safety measures in place. Patient agrees to call for assistance. Call mcnulty and phone within reach. will continue to monitor.
[2021-11-16 07:48] LABS: Cortisol AM (Before 10AM) 4.08 ug/dL (4.46-22.7)
[2021-11-16 08:46] LABS: TSH w/ Reflex to FT4 < 0.02 uIU/mL (0.47-4.68)
[2021-11-16] MEDS: CITALOPRAM 10 MG TABLET 40 MG PO (09:30)
[2021-11-16] MEDS: APIXABAN 5 MG TABLET PO ×2 (09:30→20:58)
[2021-11-16] MEDS: INSULIN LISPRO 100 UNIT/ML 3ML VIAL SUBCUT ×2 (09:43→11:58)
[2021-11-16] MEDS: OXYCODONE IR 5 MG TABLET PO ×3 (10:34→20:57)
[2021-11-16] MEDS: GABAPENTIN 300 MG CAPSULE 900 MG PO ×2 (10:36→20:57)
--- NOTE | 2021-11-16 14:12 | CM.DANOTE ---
DCP: Case received, EMR reviewed and met with patient. Introduced self and role. Was able to obtain information regarding patient's baseline activity level, as well as her current living situation. DCP assessment completed with information currently available. Patient is a 51 year old female who admitted early this morning to the care of the hospitalist team. PCP: Dr. Harris/[facility] Payer: confirmed: [employer]/Medicaid. Patient came to the hospital via ambulance secondary to having severe head ache, and syncopal episode. According to notes, this occurred in a grocery store. Patient has history of diverticulitis, chronic DJD, and frequent headaches. Patient also has history of fibromyalgia, and PE/DVT. She also has chronic pain issues, and is on gabapentin aas well as oxycodone. Patient holds diagnosis of hypotension, tachycardia, headache, and AKASH. Met with patient in her room. Had checked on her several times in the morning, she was either talking on the phone, or sleeping. Was able to just see patient, she is laying in bed, alert and oriented, not feeling well. Confirmed that patient resides on [address], and lives in an RV on her father's property. She resides alone, and is independent at her baseline. Confirmed that she sees Dr. Harris on the [place] for primary medical care. Her ex- is Jay Jay Yi, and is also her friend. P: DCP to continue to check in and follow closely for any needs. Patient should be able to go home when she is deemed medically stable. Yun Hedrick RN/Furrier Shop Supervisor Discharge Planning/Care Management CM Discharge Assessment Start: 11/16/21 14:10 Freq: Status: Active Protocol: Document 11/16/21 14:10 (Rec: 11/16/21 14:11 [id number]) Discharge Planning Assessment Assigned [employer] Yun Hedrick RN/[employer]ur[employer] Supervisor Advance Directives? No Advance Directives on File No History Provided By Patient Prior Living Arrangements RV Comment Lives on her father's property Household Members none Type of transporation used prior to Drives own vehicle admit Independent with ADL's Yes Is patient alert and oriented? Yes Barriers to Discharge No Discharge Plan Home Transportation Arrangement Friend or family member Referrals Initiated None needed Whiteboard Updated in Patient Room with Yes name and ext. # of Precinct Police Captain Review Status In Process Next Review Type Continued Stay Review
[2021-11-16] MEDS: cefTRIAXone 1,000 MG in SODIUM CHLORIDE 0.9% 100 ML 200 MG IV (14:17)
[2021-11-16] MEDS: BUTALB/APAP/CAFFEINE 50/325/40 TABLET 1 EACH PO (14:18)
[2021-11-16 14:23] LABS: BUN Creatinine Ratio 26.9 (6-22); Blood Urea Nitrogen 32 mg/dL (7-17); Calcium 7.9 mg/dL (8.4-10.2); Carbon Dioxide 21 mmol/L (22-32); Chloride 112 mmol/L (98-107); Estimated Glomerular Filt Rate 55 mL/min (>60); Glucose 146 mg/dL (70-100); HEMOLYSIS < 15 (0-50); Potassium 4.7 mmol/L (3.4-5.1); Sodium 137 mmol/L (137-145)
[2021-11-16 14:40] LABS: Prolactin 14.5 ng/mL (3.0-18.6)
--- NOTE | 2021-11-16 15:04 | PC.NURSE ---
Addendum entered by Genesis Bustamante R.N. 11/16/21 15:15: bp 130/80's noted. Original Note: pt has c/o green and generalized body ache 10/10 with hx of fibromyalgia. medicated with oxy po as pt takes at home. she states now that it is not helping notifed orders rec'd. medicated with 1 fioricet with relief and green pain level at 3.
[2021-11-16] MEDS: SODIUM CHLORIDE 0.9% 1,000 ML 125 ML IV ×2 (15:30→21:14)
[2021-11-16] MEDS: ATORVASTATIN 20 MG TABLET 40 MG PO (20:57)
[2021-11-17] VITALS (7 sets, daily range): BP systolic 137–184; BP diastolic 82–98; PULSE 77–115; RESP 16–18; TEMP 35.8–36.6; O2SAT 97–98
[2021-11-17] MEDS: OXYCODONE IR 5 MG TABLET PO ×5 (02:16→21:53)
[2021-11-17] MEDS: LORazepam 1 MG TABLET PO (02:17)
[2021-11-17 06:05] LABS: Add Manual Diff / Slide Review NO; Basophils Absolute Auto 0 /uL (0-100); Basophils Percent Auto 0.6 % (0-2); Eosinophils Absolute Auto 300 /uL (0-450); Eosinophils Percent Auto 4.1 % (2-4); Hematocrit 35.2 % (36-46); Hemoglobin 11.6 g/dL (12.0-16.0); Lymphocytes Absolute Auto 2300 /uL (1100-4500); Lymphocytes Percent Auto 34.1 % (25-40); Mean Corpuscular HGB Conc 32.9 % (30-36); Mean Corpuscular Hemoglobin 30.4 PG (26-34); Mean Corpuscular Volume 92.3 fL (80-100); Monocytes Absolute Auto 400 /uL (0-900); Monocytes Percent Auto 6.7 % (3-14); Neutrophils Absolute Auto 3700 /uL (1500-7000); Neutrophils Percent Auto 54.5 % (50-75); Platelet Count 212 X10^3/uL (150-400); Red Blood Cell Count 3.81 X10^6/uL (4.0-5.2); Red Cell Distribution Width 15.3 % (11.6-14.8); White Blood Cell Count 6.7 X10^3/uL (4.5-11.0)
[2021-11-17 06:11] LABS: Blood Urea Nitrogen 18 mg/dL (7-17); Calcium 8.7 mg/dL (8.4-10.2); Carbon Dioxide 21 mmol/L (22-32); Chloride 112 mmol/L (98-107); Estimated Glomerular Filt Rate > 60 mL/min (>60); Glucose 171 mg/dL (70-100); HEMOLYSIS < 15 (0-50); Potassium 4.9 mmol/L (3.4-5.1); Sodium 136 mmol/L (137-145)
--- NOTE | 2021-11-17 07:24 | DI.CT.S_ITS ---
PROCEDURE: CT ANGIO CHEST PE PROTOCOL INDICATIONS: sob, elevated TECHNIQUE: After the administration of intravenous contrast, 2 mm thick sections acquired from the pulmonary apices to the posterior costophrenic angles. 3-dimensional maximum intensity projection (MIP) coronal and sagittal reformats were then acquired through the thorax. For radiation dose reduction, the following was used: automated exposure control, adjustment of mA and/or kV according to patient size. COMPARISON: None. FINDINGS: Image quality: Excellent. Lungs and pleura: No acute air space opacities. No pleural effusions or pneumothorax. Central and peripheral airways are patent and normal in caliber. Mediastinum: Heart size is normal. The coronary arteries have atherosclerotic calcifications. No pericardial effusion. No mediastinal adenopathy by size criteria. Thoracic aorta and central pulmonary arteries are normal in size. Esophagus is normal in caliber. No hiatal hernia. Bones and chest wall: No suspicious bony lesions. No vertebral body compression fractures. No axillary or supraclavicular adenopathy by size criteria. Thyroid gland has hypodensities in the left lobe, prior ultrasound recently demonstrates this. Abdomen: Limited visualization of the upper abdomen shows no acute abnormality. IMPRESSION: 1. No pulmonary embolism. 2. No acute abnormality of the chest. Dictated by: Parth Lisa M.D. on 11/17/2021 at 10:35 Approved by: Parth Lisa M.D. on 11/17/2021 at 10:42
[2021-11-17] MEDS: GABAPENTIN 300 MG CAPSULE 900 MG PO ×2 (08:15→20:51)
[2021-11-17] MEDS: APIXABAN 5 MG TABLET PO ×2 (08:16→20:52)
[2021-11-17] MEDS: CITALOPRAM 10 MG TABLET 40 MG PO (08:16)
[2021-11-17] MEDS: INSULIN LISPRO 100 UNIT/ML 3ML VIAL SUBCUT ×3 (08:17→17:25)
--- NOTE | 2021-11-17 09:32 | P.PN_ITS ---
Subjective Subjective Date Patient Seen: 11/17/21 Time Patient Seen: 09:32 Interval history: Patient states she is tired and has headaches all the time she denies any shortness of breath when sitting up but states that it gets worse when she tries to walk. She does not have a history of migraines she does states she is photophobic currently and when I came into the room her arms are both shaking. She does not have an explanation as to why. States she just took gabapentin, oxycodone, and ?something else?. Exam Vital Signs (past 8 hours): - 11/17/21 03:07 11/17/21 08:00 Temperature 97.9 F 96.5 F L Pulse Rate 112 H 115 H Respiratory Rate 18 16 Blood Pressure 144/82 H 147/93 H Pulse Oximetry 97 97 Oxygen Flow Rate 0 0 Oxygen Delivery Method Room Air Oxygen Flow Rate 0 Narrative Exam Narrative: Gen: Alert, oriented, morbidly obese 51 y.o. female, appears to be exhausted and her arms were shaking HEENT: normocephalic, atraumatic, conjunctiva clear, sclera non-icteric, oral mucosa pink and moist Neck: supple, full ROM, no JVD, trachea is midline Resp: Lungs CTA, non-labored breathing CV: RRR, no murmur or rubs Abd: soft, non-tender, normoactive BTs Skin: no lesions or rashes, dry and intact Neuro: Alert and oriented X 4 w/no focal deficits. Speech clear and coherent. Extremities: moves all 4 extremities, is ambulatory, negative Gold?s sign Psyche: Anxious Objective Labs Result Diagrams: 11/17/21 05:55 11/17/21 05:55 Labs: Laboratory Results - last 24 hr 11/16/21 11/16/21 11/17/21 06:43 06:43 05:55 WBC 6.7 RBC 3.81 L Hgb 11.6 L Hct 35.2 L MCV 92.3 MCH 30.4 MCHC 32.9 RDW 15.3 H Plt Count 212 Neut % (Auto) 54.5 Lymph % (Auto) 34.1 [place] % (Auto) 6.7 Eos % (Auto) 4.1 H Baso % (Auto) 0.6 Neut # (Auto) 3700 Lymph # (Auto) 2300 [place] # (Auto) 400 Eos # (Auto) 300 Baso # (Auto) 0 Sodium 137 Potassium 4.7 Chloride 112 H Carbon Dioxide 21 L BUN 32 H Creatinine 1.19 H Estimated GFR 55 L BUN/Creatinine Ratio 26.9 H Glucose 146 H Calcium 7.9 L Prolactin 14.5 11/17/21 05:55 WBC RBC Hgb Hct MCV MCH MCHC RDW Plt Count Neut % (Auto) Lymph % (Auto) [place] % (Auto) Eos % (Auto) Baso % (Auto) Neut # (Auto) Lymph # (Auto) [place] # (Auto) Eos # (Auto) Baso # (Auto) Sodium 136 L Potassium 4.9 Chloride 112 H Carbon Dioxide 21 L BUN 18 H Creatinine 0.62 Estimated GFR > 60 BUN/Creatinine Ratio 29.0 H Glucose 171 H Calcium 8.7 Prolactin PFSH Medical History Degenerative joint disease of cervical spine Diabetes Hypertension Surgical History History of appendectomy Social History household members: none Smoking Status: Former smoker alcohol intake: never Assessment & Plan Assessment & Plan narrative: Viktor Felix is a 51 female with PMH HTN, DM, fibromyalgia who presents with multiple concerns found to be hypotensive. 1. Hypotension, now normotensive -etiology not certain -doubt infection no fever, normal wbc -suspect hypovolemia secondary to possible recent GI illness in setting of continued BP med use -continue IV fluids as patient clinically dehydrated -hold off on antibiotics -hold lisinopril-hctz -ordered ECHO, doubt pericardial effusion, but rule out with ECHO -with history of PE and vague complaints of sob ordered CA PE protocol, but is on anticoagulation so suspect this is less likely -AKASH resolved so now can undergo CT chest PE protocol, ordered for today -consider resuming bp meds 11/18 -AM cortisol was low at 4.08 2. Tachycardia -per PCP notes, this is chronic issue -regardless continue IV fluid resuscitation -rule out PE with VQ scan -check tsh 3. Headache -suspect secondary to fibromyalgia or hypovolemia -stop fluid resuscitation -doubt infectious cause, but monitor closely for indication for LP or antibiotics 4. AKASH, resolved today -imaging shows no evidence of obstruction -suspect hypovolemia -continue IV fluids -check urine creatinine, sodium -may also be ATN in setting of taking multiple nephrotoxic home meds -hold amitryptiline, oral DM meds, acyclovir, lisinopril-hctz 5. Type 2 Diabetes -hold oral DM meds -ordered insulin sliding scale 6. Obesity -BMI 39 -follow up as outpatient 7. HTN -hold BP meds 8. Chronic pain -NSAIDs contraindicated due to elevated creatinine -hold opiates for now given hypotension 9. Anxiety -careful with benzos, did receive in ED 10. Hx of VTE -continue apixaban COVID-19 COVID-19 status: Negative Result date/Date tested (Pos, Neg/Pending): 11/15/21 Time Spent With Patient Critical Care time: I spent a total of [] minutes of critical care time on this patient's care today; this time is exclusive of procedural time. Quality VTE Deep Vein Thrombosis/Pulmonary Embolism Present on Admission: No
--- NOTE | 2021-11-17 12:52 | PC.NURSE ---
Addendum entered by Lavinia Dyer R.N. 11/17/21 16:28: Patient given another oxycodone for pain and discomfort, this has been effective for pain control. She is resting now. Original Note: Patients heart rate up in the 120s consistently this morning. Per , we started her propanolol back up. She is sitting up on the side of the bed eating lunch, given 1 oxycodone earlier this morning and helpful to patient. She is pleasant and cooperative with care. Up independently to the bathroom. Patient taking oxycodone for discomfort and helpful.
[2021-11-17] MEDS: cefTRIAXone 1,000 MG in SODIUM CHLORIDE 0.9% 100 ML 200 MG IV (14:42)
[2021-11-17] MEDS: PROPRANOLOL 10 MG TABLET PO (18:10)
[2021-11-17] MEDS: ATORVASTATIN 20 MG TABLET 40 MG PO (20:51)
[2021-11-18] MEDS: OXYCODONE IR 5 MG TABLET PO ×3 (02:43→12:23)
[2021-11-18] MEDS: PROPRANOLOL 10 MG TABLET PO (02:44)
[2021-11-18 03:26] VITALS: BP 148/80; PULSE 98; RESP 18; TEMP 36.4; O2SAT 96
[2021-11-18 06:34] LABS: Add Manual Diff / Slide Review NO; Basophils Absolute Auto 0 /uL (0-100); Basophils Percent Auto 0.6 % (0-2); Eosinophils Absolute Auto 200 /uL (0-450); Eosinophils Percent Auto 3.5 % (2-4); Hematocrit 36.2 % (36-46); Hemoglobin 12.2 g/dL (12.0-16.0); Lymphocytes Absolute Auto 2400 /uL (1100-4500); Lymphocytes Percent Auto 35.7 % (25-40); Mean Corpuscular HGB Conc 33.6 % (30-36); Mean Corpuscular Hemoglobin 30.5 PG (26-34); Mean Corpuscular Volume 90.7 fL (80-100); Monocytes Absolute Auto 500 /uL (0-900); Monocytes Percent Auto 7.1 % (3-14); Neutrophils Absolute Auto 3600 /uL (1500-7000); Neutrophils Percent Auto 53.1 % (50-75); Platelet Count 218 X10^3/uL (150-400); Red Blood Cell Count 3.99 X10^6/uL (4.0-5.2); Red Cell Distribution Width 14.9 % (11.6-14.8); White Blood Cell Count 6.9 X10^3/uL (4.5-11.0)
[2021-11-18 06:46] LABS: BUN Creatinine Ratio 28.1 (6-22); Blood Urea Nitrogen 16 mg/dL (7-17); Calcium 9.4 mg/dL (8.4-10.2); Carbon Dioxide 24 mmol/L (22-32); Chloride 105 mmol/L (98-107); Estimated Glomerular Filt Rate > 60 mL/min (>60); Glucose 160 mg/dL (70-100); HEMOLYSIS < 15 (0-50); Potassium 4.3 mmol/L (3.4-5.1); Sodium 134 mmol/L (137-145)
[2021-11-18 07:55] VITALS: BP 160/99; PULSE 97; RESP 17; TEMP 35.9; O2SAT 98
[2021-11-18] MEDS: GABAPENTIN 300 MG CAPSULE 900 MG PO (08:01)
[2021-11-18] MEDS: CITALOPRAM 10 MG TABLET 40 MG PO (08:01)
[2021-11-18] MEDS: INSULIN LISPRO 100 UNIT/ML 3ML VIAL SUBCUT ×2 (08:01→12:18)
[2021-11-18] MEDS: APIXABAN 5 MG TABLET PO (08:01)
[2021-11-18 10:26] VITALS: BP 160/99; PULSE 97
[2021-11-18] MEDS: lisinopriL 10 MG TABLET PO (10:26)
--- NOTE | 2021-11-18 11:21 | P.EN_ITS ---
Event Note Event Note (Rapid Response, Code, or fall): Discussed with the patient and her father related to the follow-up. Patient comfortable going home today. Call social media marketing manager to arrange the transportation. Recommended to have a home blood pressure monitoring. Appropriate nutrition, hydration is very important to avoid any future hypotensive episodes. Father is worried about inappropriate weight gain in the past 3 months, unclear dietary habits. Abnormal TSH and low cortisol levels discussed with the patient and also father. Further workup as an outpatient is strongly recommended. We will mentioned that and discharge summary and also discharge instructions. I do not see any acute needs for ongoing hospitalization at this time. Discharge planning pending.
[2021-11-18 11:47] VITALS: BP 165/105; PULSE 109; RESP 18; TEMP 35.7; O2SAT 97
[2021-11-18] MEDS: cefTRIAXone 1,000 MG in SODIUM CHLORIDE 0.9% 100 ML 200 MG IV (13:28)
--- NOTE | 2021-11-18 14:19 | PC.NURSE ---
Pt is Axox4, independent and cooperative. VSS, pt c/o headache and general pain and recieved PRN Oxy 5mg x2 with good effect. BG-167/157 and pt received coverage for that. Pt is eating well and voiding well. BP medication is back med list and pt recieved Lisinopril 10mg PO today. Otherwise, no problem identified. Pt is ready to d/c.
--- NOTE | 2021-11-18 14:40 | PM.DS.1 ---
History of Present Illness History of Present Illness Date Patient Seen: 11/18/21 Time Patient Seen: 04:00 Chief complaint: hypotension/headache Narrative: Ms. Felix is a 51W with PMH fibromyalgia, hx PE/DVT multiple times, HTN, Type 2 DM who presents with vague symptoms. The patient can not provide a clear story to me as to why she is here. She on open ended questioning states she was short of breath Wednesday and that that's about it. In the ED it was noted she was in a store and was complaining of headache, stomach pain and dizziness. Upon asking that she does confirm. She states she thought she ate some bad food on Wednesday and she had diarrhea and vomiting. She felt quite thirsty. She has chronic pain and takes nabumetone and oxycodone. In addition to this she is also occasionally takes acyclovir for HSV, amitryptiline. She also takes gabapentin for pain. And she takes lisinopril-HCTZ. She does not think any of these medications are new. She denies taking additional NSAIDs above these. She has no fevers/chills. No chest pain. She is currently not short of breath. Looking through PCP records she has chronic tachycardia in the 100s, with etiology still not clear. In the ED workup was done, vitals notable for normal temp, tachycardia in the 100s, blood pressure in the systolic 80s-90s. Labs notable for WBC 9.7, hgb 12.2, plts 241. BUN 49, creatinine 2.38. D-dimer 412. Troponin negative. COVID negative. Chest xray negative. CT head negative. CT abdomen/pelvis without contrast with no acute process. She was ordered for IV fluids and admitted for further treatment. Discharge Providers Provider Date of admission: 11/16/21 00:29 Discharge Date: 11/18/21 Primary care physician: SOBEIDA Schwab Consults: 11/15/21 21:08 [place] [facility] [place] Comment: Discharge provider: Cely Clayton MD Summary Status at Discharge Cognitive/behavioral status at discharge: oriented Functional status at discharge: independent ambulation Overall status at discharge: patient is back to baseline Time Spent with Patient Time spent: Less than 30 minutes Exam Vital Signs (past 8 hours): - 11/18/21 07:55 11/18/21 07:00 11/18/21 10:26 Temperature 96.6 F L Pulse Rate 97 H 97 H Respiratory Rate 17 Blood Pressure 160/99 H 160/99 H Pulse Oximetry 98 Oxygen Delivery Method Room Air Oxygen Flow Rate 0 11/18/21 11:47 Temperature 96.3 F L Pulse Rate 109 H Respiratory Rate 18 Blood Pressure 165/105 H Pulse Oximetry 97 Oxygen Delivery Method Oxygen Flow Rate 0 Oxygen Delivery Method Room Air Oxygen Flow Rate 0 Narrative Exam Narrative: Feeling much better. Close to her baseline. Ambulatory Objective Labs Result Diagrams: 11/18/21 06:07 11/18/21 06:07 Labs: Laboratory Results - last 24 hr 11/18/21 11/18/21 06:07 06:07 WBC 6.9 RBC 3.99 L Hgb 12.2 Hct 36.2 MCV 90.7 MCH 30.5 MCHC 33.6 RDW 14.9 H Plt Count 218 Neut % (Auto) 53.1 Lymph % (Auto) 35.7 [place] % (Auto) 7.1 Eos % (Auto) 3.5 Baso % (Auto) 0.6 Neut # (Auto) 3600 Lymph # (Auto) 2400 [place] # (Auto) 500 Eos # (Auto) 200 Baso # (Auto) 0 Sodium 134 L Potassium 4.3 Chloride 105 Carbon Dioxide 24 BUN 16 Creatinine 0.57 Estimated GFR > 60 BUN/Creatinine Ratio 28.1 H Glucose 160 H Calcium 9.4 PFSH Medical History Degenerative joint disease of cervical spine Diabetes Hypertension Surgical History History of appendectomy Social History household members: none Smoking Status: Former smoker alcohol intake: never Discharge Assessment & Plan Assessment and Plan Assessment: Hypotension most likely secondary to combination of diuretics and poor oral intake, improved with IV fluids during this hospitalization. Echocardiogram and CT with PE protocol did not show any acute abnormalities. AM cortisol was low at 4.08 -need further follow-up as an outpatient Tachycardia - per PCP notes, this is chronic issue Chronic pain syndrome secondary to fibromyalgia Acute kidney injury most likely secondary to hypotension and hypovolemia, improved Type 2 Diabetes, [id number] Chronic Anxiety, outpatient follow-up recommended Hx of VTE -continue apixaban Plan of Treatment: Discussed with the patient and her father related to the follow-up. Patient comfortable going home today. Call social science research assistant to arrange the transportation. Recommended to have a home blood pressure monitoring. Appropriate nutrition, hydration is very important to avoid any future hypotensive episodes. Father is worried about inappropriate weight gain in the past 3 months, unclear dietary habits. Abnormal TSH and low cortisol levels discussed with the patient and also father. Further workup as an outpatient is strongly recommended. We will mentioned that and discharge summary and also discharge instructions. I do not see any acute needs for ongoing hospitalization at this time. Discharge planning pending. Discharge Plan Discharge Plan Patient Disposition: Home Provider Discharge Comment: Ambulatory Blood Pressure monitoring recommended and close follow up with PCP recommended. need further work up on Abnormal TSH and Cortisol as discussed with patient and her father. Nursing Discharge Comment: Education regarding BP monitoring and Compliance. Hydration and Diet Intake. Discharge orders & Medications Prescriptions: Continued [nabumatin] 500 mg tablet 500 mg PO BID Qty: 0 gabapentin 300 mg capsule 900 cap PO QAM Label Comments: TAKE THREE(3) CAPSULES BY MOUTH IN THE MORNING AND SIX(6) CAPSULES BY MOUTH AT BEDTIME DAILY NOTE CHANGE IN DIRECTIONS oxycodone 5 mg tablet 5 tab PO Q6H Label Comments: Take (1) tab by mouth every (6) hours as needed for severe pain (No more than 4 /24 hr) for up to 28 days. release 11/05/21 start on 11/07/21 must last to 12/05/21. amitriptyline 50 mg tablet 50 tab PO 3XD Label Comments: TAKE ONE(1) TABLET BY MOUTH ONCE DAILY AT BEDTIME atorvastatin 20 mg tablet 20 tab PO BEDTIME Label Comments: TAKE ONE(1) TABLET BY MOUTH ONCE DAILY citalopram 40 mg tablet 40 tab PO DAILY Label Comments: TAKE ONE(1) TABLET BY MOUTH ONCE DAILY THESE ARE 40MG TABLETS azelastine 137 mcg (0.1 %) aerosol,spray 137 spray INTRANASAL PRN PRN (Reason: Allergy Symptoms) Label Comments: SPRAY ONE(1) SPRAY INTO EACH NOSTRIL TWO(2) TIMES DAILY propranolol 10 mg tablet 10 tab PO TID PRN (Reason: Anxiety) Label Comments: TAKE ONE(1) TABLET BY MOUTH THREE(3) TIMES DAILY NEEDED FOR ANXIETY tizanidine 2 mg tablet 2 tab PO Q8H PRN (Reason: Muscle Spasm) Label Comments: TAKE ONE(1) TABLET BY MOUTH EVERY EIGHT(8) HOURS Januvia 25 mg tablet 25 tab PO DAILY Label Comments: TAKE ONE(1) TABLET BY MOUTH ONCE DAILY Eliquis 5 mg tablet 5 tab PO BID Label Comments: TAKE ONE(1) TABLET BY MOUTH TWO(2) TIMES DAILY gabapentin 300 mg Tablet 1,800 mg PO BEDTIME loratadine [Allergy Relief (loratadine)] 10 mg tablet 10 tab PO DAILY Label Comments: TAKE ONE(1) TABLET BY MOUTH ONCE DAILY Jardiance 10 mg tablet 10 tab PO DAILY Label Comments: TAKE ONE(1) TABLET BY MOUTH ONCE DAILY lisinopril-hydrochlorothiazide 20-12.5 mg tablet 20 tab PO DAILY Label Comments: TAKE ONE(1) TABLET BY MOUTH ONCE DAILY Follow up/Referrals: Diana Harris ARNP [Primary Care Provider] - Discharge Data Primary Care Provider: Diana Harris Quality VTE Deep Vein Thrombosis/Pulmonary Embolism Present on Admission: No
== END 2021-11-18 14:22 | disposition home or self-care (01) ==
LOC: ED 11-16 00:24 → AC 11-16 01:00
PROVIDERS: Student in an Organized Health Care Education/Training Program; Admitting Provider Internal Medicine; Emergency Provider Emergency Medicine; Family Provider Family Medicine; PCP Nurse Practitioner Family; Visit Provider Family Medicine
DX: R55 Syncope and collapse (principal); I95.9 Hypotension, unspecified; E86.1 Hypovolemia; R00.0 Tachycardia, unspecified; R51.9 Headache, unspecified; N17.9 Acute kidney failure, unspecified; E11.9 Type 2 diabetes mellitus without complications; I10 Essential (primary) hypertension; Z79.84 Long term (current) use of oral hypoglycemic drugs; E66.9 Obesity, unspecified; Z68.39 Body mass index [BMI] 39.0-39.9, adult; F41.9 Anxiety disorder, unspecified; G89.29 Other chronic pain; M79.7 Fibromyalgia; Z20.822 Contact with and (suspected) exposure to COVID-19
CPT/HCPCS: 36415; 70450; 71045; 71275; 74176; 80048; 80053; 81001; 82533; 82570; 82962; 83690; 83735; 83880; 84146; 84300; 84439; 84443; 84484; 85025; 85379; 87086; 87635; 93306; 96361; 96365; 96366; 96372; 96375; 99284; C9803; G0378; J0696; J1170; J1815; J2405; J3360

== ENCOUNTER → 2021-12-02 12:44 | Outpatient (CLI) | payer OTHER, MEDICAID, SELFPAY ==
[2021-11-16 01:42] VITALS: BMI 39.2
--- NOTE | 2021-12-02 | DI.US.S_ITS ---
LIMITED ULTRASOUND OF LEFT BREAST: 12/02/2021 CLINICAL: Palpable left breast lumps and generalized pain. Comparison is made to exams dated: 12/02/2021 mammogram, 07/21/2010 mammogram, and 07/21/2010 [facility]. Color flow and real-time ultrasound of the left breast 1-3 o'clock and 9 o'clock regions were performed. Gallegos scale images of the real-time examination were reviewed. No significant abnormalities were seen sonographically in the left breast in the region of the palpable abnormalities. IMPRESSION: NEGATIVE No sonographic evidence of malignancy in the region of the palpable abnormalities. Exam findings were conveyed to the patient. Patient is advised to monitor for significant change. Clinical follow-up as needed. A 1 year screening mammogram is recommended. This exam was interpreted at Station ID: [id number]. Electronically Signed By: Marco Lynne M.D. slc/:12/02/2021 14:17:15 letter sent: Normal Exam Ultrasound BI-RADS: 1 Negative
--- NOTE | 2021-12-02 | DI.MG.S_ITS ---
BILATERAL DIGITAL DIAGNOSTIC MAMMOGRAM 3D/2D: 12/02/2021 CLINICAL: Left breast lump. Comparison is made to exam dated: 07/21/2010 mammogram - [facility]. There are scattered fibroglandular elements in both breasts. Asymmetric left breast fibroglandular tissue is decreased since 2011 and is benign. This is in the region of the palpable abnormality. No significant masses, calcifications, or other findings are seen in either breast. IMPRESSION: INCOMPLETE: NEEDS ADDITIONAL IMAGING EVALUATION No mammographic evidence of malignancy. A targeted ultrasound for left breast palpable abnormalities is recommended and will immediately follow. Based on the Tyrer Cuzick model (a risk assessment model) the patient's lifetime risk is 7.1% and her 10 year risk is 1.7%. According to the ACR, ACS, and NCCN guidelines, an annual breast MRI exam along with mammogram is recommended if the patient's lifetime risk is 20% or greater. This exam was interpreted at Station ID: [id number]. NOTE: For mammograms, a report in lay terms will be sent to the patient. Approximately 15% of breast malignancies will not be visualized mammographically. In the management of a palpable breast mass, a negative mammogram must not discourage biopsy of a clinically suspicious lesion. Electronically Signed By: Marco Lynne M.D. slc/:12/02/2021 14:14:50 ACR BI-RADS Category 0: Incomplete [id number]
== END ==
PROVIDERS: Family Provider Family Medicine; PCP Nurse Practitioner Family; Referring Provider Nurse Practitioner Family; Visit Provider Nurse Practitioner Family
DX: R92.8 Other abnormal and inconclusive findings on diagnostic imaging of breast (principal); N63.25 Unspecified lump in the left breast, overlapping quadrants
CPT/HCPCS: 76642; 77066; G0279

== ENCOUNTER → 2022-08-03 11:46 | Outpatient (CLI) | payer OTHER, MEDICAID, SELFPAY ==
[2021-11-16 01:42] VITALS: BMI 39.2
--- NOTE | 2022-08-03 | DI.CT.S_ITS ---
PROCEDURE: CT CERVICAL SPINE WO CON INDICATIONS: Radiculopathy, cervical region TECHNIQUE: Noncontrast 3 mm thick sections acquired from the skull base to the T4 level. Sagittal and coronal reformats were then constructed. For radiation dose reduction, the following was used: automated exposure control, adjustment of mA and/or kV according to patient size. COMPARISON: Outside Film, CR, XR CERVICAL SPINE 2 OR 3 VIEWS, 03/06/2022, 10:22. [facility], CT, C-SPINE WITHOUT CONTRAST, 05/04/2013, 13:43. FINDINGS: Image quality: This examination is somewhat limited by quantum mottle artifact. Bones: No fractures or dislocations. Visualized superior ribs are intact. Anterior fixation hardware can be seen at the C4-C5 level. The fusion plate is well seated. The screws are well placed. There is a disc spacer. No findings of hardware failure or hardware loosening are seen. Focal degenerative change is seen involving the C1-C2 interface anteriorly. At C3-C4, there is moderate to severe disc space narrowing, with posteriorly directed endplate osteophytes. Mild degenerative change is seen at C5-C6. At C6-C7, there is moderate to severe disc space narrowing, with endplate irregularity and sclerosis. Vacuum disc phenomenon is seen at this level. Posteriorly projected endplate osteophytes are seen at C6-C7. Soft tissues: Prevertebral soft tissues are normal in thickness. No paravertebral hematomas. No apical pneumothoraces. IMPRESSION: Unremarkable C4-C5 postoperative hardware. Degenerative changes are seen, which are worst at the C3-C4 and C6-C7 levels. Dictated by: Yobani Mccormack M.D. on 08/03/2022 at 12:21 Approved by: Yobani Mccormack M.D. on 08/03/2022 at 12:24
== END ==
PROVIDERS: Family Provider Family Medicine; PCP Family Medicine; Referring Provider Physician Assistant Surgical; Visit Provider Physician Assistant Surgical
DX: M47.22 Other spondylosis with radiculopathy, cervical region (principal)
CPT/HCPCS: 72125

== ENCOUNTER → 2022-12-15 12:14 | Outpatient (CLI) | payer OTHER, MEDICAID, SELFPAY ==
[2021-11-16 01:42] VITALS: BMI 39.2
--- NOTE | 2022-12-15 | DI.CT.S_ITS ---
PROCEDURE: CT ANKLE LEFT WITHOUT INDICATIONS: FIRST DEGREE ANKLE SPRAIN TECHNIQUE: Noncontrast 1-1.5 mm axial sections acquired from above the tibiotalar joint to the bottom of the calcaneus, with coronal and sagittal reformats. COMPARISON: [facility] Outside Film, CR, XR ANKLE 3+ VIEWS LEFT, 06/12/2022, 16:12. [facility] Outside Film, CR, XR ANKLE 3+ VIEWS LEFT, 08/07/2022, 9:07. FINDINGS: Image quality: Excellent. Bones: No acute osseous fracture or dislocation. Mild degenerative changes at the 3rd and 4th tarsometatarsal joints. No intraosseous lesion. Small plantar calcaneal enthesophyte. Soft tissues: No focal soft tissue edema. Small calcifications adjacent to the distal tip of the medial malleolus are likely related to a prior deltoid ligament sprain. Small calcifications are also seen adjacent to the distal fibular tip likely due to a lateral ligament sprain. However, the articular cartilages, ligaments, and tendons are not well evaluated with standard CT. No full-thickness tendon tearing is seen. Proximal plantar fascia appears thickened. Mildly convex appearance of the Achilles tendon may indicate tendinosis. IMPRESSION: 1. No acute osseous fracture or dislocation. 2. Small ossifications adjacent to the medial and lateral malleolar tips are suspicious for prior sprains of the deltoid ligament and lateral ankle ligaments respectively. 3. Chronic proximal plantar fasciitis. Small plantar calcaneal enthesophyte. 4. Mild Achilles tendinosis. Approved by: Mani Laird M.D. on 12/15/2022 at 16:45
== END ==
PROVIDERS: Family Provider Family Medicine; PCP Family Medicine; Referring Provider Podiatrist; Visit Provider Podiatrist
DX: S82.839A Other fracture of upper and lower end of unspecified fibula, initial encounter for closed fracture (principal); S93.409A Sprain of unspecified ligament of unspecified ankle, initial encounter; E11.9 Type 2 diabetes mellitus without complications; M72.2 Plantar fascial fibromatosis; M77.32 Calcaneal spur, left foot
CPT/HCPCS: 73700

== ENCOUNTER → 2023-01-15 10:48 | Day surgery (SDC) | payer OTHER, MEDICAID, SELFPAY ==
[2021-11-16 01:42] VITALS: BMI 39.2
--- NOTE | 2023-01-15 | DI.US.S_ITS ---
PROCEDURE: US ABDOMEN LIMITED INDICATIONS: KATY-UMBILICAL MASS, pain in that area. TECHNIQUE: Real-time focused scanning was performed of the abdomen, with image documentation. COMPARISON: None. FINDINGS: There is a masslike structure which is hypoechoic, mildly heterogeneous, with minimal internal vascularity anterior to the rectus fascia without a identifiable peritoneal defect or extending neck and no change with Valsalva or compression sonographically. Significant tenderness is associated exactly with this area. The structure measures approximately 1.1 x 1.0 x 0.6 cm. IMPRESSION: Painful hypoechoic hypovascular masslike structure corresponding exactly to the area of current clinical concern, potentially an incarcerated small hernia but also neoplasm or focal infection needs to be considered. CT scanning with contrast would provide significant improved anatomic detail. Dictated by: Graeme Cole M.D. on 01/15/2023 at 14:33 Approved by: Graeme Cole M.D. on 01/15/2023 at 14:36
[2023-01-15 12:36] VITALS: BP 134/78; PULSE 77; RESP 16; TEMP 36.8; O2SAT 98
[2023-01-15 13:09] LABS: Glucose 505 mg/dL (70-100)
== END ==
PROVIDERS: Family Provider Family Medicine; PCP Family Medicine; Referring Provider Orthopaedic Surgery Orthopaedic Surgery of the Spine; Visit Provider Orthopaedic Surgery Orthopaedic Surgery of the Spine
DX: S82.839A Other fracture of upper and lower end of unspecified fibula, initial encounter for closed fracture (principal); S93.409A Sprain of unspecified ligament of unspecified ankle, initial encounter; E11.9 Type 2 diabetes mellitus without complications; M47.22 Other spondylosis with radiculopathy, cervical region
CPT/HCPCS: 76705; 82947

== ENCOUNTER 2023-01-15 12:35 | Emergency (ER) | payer OTHER, MEDICAID, SELFPAY ==
[2021-11-16 01:42] VITALS: BMI 39.2
[2023-01-15 12:39] VITALS: BP 104/64; PULSE 96; RESP 18; TEMP 36.4; O2SAT 97; BMI 29.7
[2023-01-15 12:59] LABS: Add Manual Diff / Slide Review NO; Basophils Absolute Auto 100 /uL (0-100); Basophils Percent Auto 0.7 % (0-2); Eosinophils Absolute Auto 400 /uL (0-450); Eosinophils Percent Auto 5.3 % (2-4); Hematocrit 41.8 % (36-46); Hemoglobin 14.2 g/dL (12.0-16.0); Lymphocytes Absolute Auto 3400 /uL (1100-4500); Lymphocytes Percent Auto 45.5 % (25-40); Mean Corpuscular HGB Conc 34.1 % (30-36); Mean Corpuscular Hemoglobin 30.1 PG (26-34); Mean Corpuscular Volume 88.3 fL (80-100); Monocytes Absolute Auto 500 /uL (0-900); Monocytes Percent Auto 6.8 % (3-14); Neutrophils Absolute Auto 3100 /uL (1500-7000); Neutrophils Percent Auto 41.7 % (50-75); Platelet Count 279 X10^3/uL (150-400); Red Blood Cell Count 4.73 X10^6/uL (4.0-5.2); Red Cell Distribution Width 14.8 % (11.6-14.8); White Blood Cell Count 7.4 X10^3/uL (4.5-11.0)
[2023-01-15] MEDS: SODIUM CHLORIDE 0.9% 1,000 ML 1000 ML IV (13:32)
--- NOTE | 2023-01-15 13:34 | ED.RECABL ---
HPI - Recheck/Abnormal Lab/Rx General Chief Complaint: Recheck/Abnormal Lab/Rx Stated Complaint: sent by surgery/blood suger over 500 Time Seen by Provider: 01/15/23 12:51 Source: patient Mode of arrival: Wheelchair History of Present Illness HPI narrative: Patient is a 53-year-old female. She is an insulin-dependent diabetic who went to the operating room today in order to have a myelogram. Her blood sugar was checked and was greater than 500. Patient states she did take her insulin this morning but did not take it yesterday because [place] looked [place]. She recently was on antibiotics for a dental infection. She was also recently on antibiotics for urinary tract infection. Related Data Home Medications Medication Instructions Recorded Confirmed [nabumatin] 500 mg PO BID ##0 10/08/16 11/16/21 amitriptyline 50 mg tablet 50 tab PO 3XD insomnia 11/16/21 11/16/21 apixaban 5 mg tablet (Eliquis) 5 tab PO BID 11/16/21 11/16/21 atorvastatin 20 mg tablet 20 tab PO BEDTIME 11/16/21 11/16/21 azelastine 137 mcg (0.1 %) nasal 137 spray intranasal PRN PRN 11/16/21 11/16/21 spray aerosol Allergy Symptoms citalopram 40 mg tablet 40 tab PO DAILY 11/16/21 11/16/21 empagliflozin 10 mg tablet 10 tab PO DAILY 11/16/21 11/16/21 (Jardiance) gabapentin 300 mg capsule 900 cap PO QAM 11/16/21 11/16/21 gabapentin 300 mg tablet 1,800 mg PO BEDTIME 11/16/21 11/16/21 lisinopril 20 20 tab PO DAILY 11/16/21 11/16/21 mg-hydrochlorothiazide 12.5 mg tablet loratadine 10 mg tablet (Allergy 10 tab PO DAILY allergy 11/16/21 11/16/21 Relief (loratadine)) oxycodone 5 mg tablet 5 tab PO Q6H pain 11/16/21 11/16/21 propranolol 10 mg tablet 10 tab PO TID PRN Anxiety 11/16/21 11/16/21 sitagliptin phosphate 25 mg tablet 25 tab PO DAILY 11/16/21 11/16/21 (Januvia) tizanidine 2 mg tablet 2 tab PO Q8H PRN Muscle Spasm 11/16/21 11/16/21 Allergies Allergy/AdvReac Type Severity Reaction Status Date / Time latex [LATEX] Allergy Mild RASH Verified 01/15/23 12:44 Penicillins [PENICILLINS] Allergy Mild RASH Verified 01/15/23 12:44 sulfamethoxazole Allergy Mild NAUSEA AND Verified 01/15/23 12:44 [SULFAMETHOXAZOLE] VOMITING Review of Systems Cardiovascular Comments: No chest pain Respiratory Comments: No shortness of breath Gastrointestinal Comments: No abdominal pain Patient History Medical History Degenerative joint disease of cervical spine Diabetes Hypertension Surgical History History of appendectomy Social History household members: none Smoking Status: Former smoker alcohol intake: never Smoking Status: Former smoker alcohol intake frequency: holidays/special occasions only Substance Use Type: does not use Exam Initial Vital Signs Initial Vital Signs: Vital Signs Temperature 97.5 F L 01/15/23 12:39 Pulse Rate 96 H 01/15/23 12:39 Respiratory Rate 18 01/15/23 12:39 Blood Pressure 104/64 01/15/23 12:39 Pulse Oximetry 97 01/15/23 12:39 Oxygen Delivery Method Room Air 01/15/23 12:39 HENCO Head: normal to inspection and normocephalic Resp Effort & Inspection: normal respiratory effort Cardio Rate: regular rate GI Inspection: normal to inspection Neuro General: patient alert, patient awake, patient oriented x3 and moves all extremities Course Orders Ordered: ED Orders 01/15/23 12:20 Basic Metabolic Panel Stat Complete Blood Count AUTO DIFF Stat Hemoglobin A1C% w Est Avg Glu Stat Discontinued Medications Sodium Chloride (Normal Saline 0.9%) 1,000 mls @ 1,000 mls/hr IV BOLUS ONE Stop: 01/15/23 13:50 Last Admin: 01/15/23 13:32 Dose: 1,000 mls/hr Documented By: JACKELINE Oxycodone/Acetaminophen (Oxycodone/Acetaminophen 5/325 Tablet) 1 tab PO NOW ONE Stop: 01/15/23 13:34 Last Admin: 01/15/23 13:52 Dose: Not Given Documented By: NELLI Vital Signs Vital signs: Vital Signs - 8 hr 01/15/23 12:39 Temperature 97.5 F L Pulse Rate 96 H Respiratory Rate 18 Blood Pressure 104/64 Pulse Oximetry 97 Oxygen Delivery Method Room Air MDM - Recheck/Abnormal Lab/Rx Lab Data Attestation: I reviewed the patient's lab results. 01/15/23 12:20 01/15/23 12:20 Labs: Lab Results 01/15/23 01/15/23 01/15/23 Range/Units 12:20 12:20 12:20 WBC 7.4 (4.5-11.0) X10^3/uL RBC 4.73 (4.0-5.2) X10^6/uL Hgb 14.2 (12.0-16.0) g/dL Hct 41.8 (36-46) % MCV 88.3 (80-100) fL MCH 30.1 (26-34) PG MCHC 34.1 (30-36) % RDW 14.8 (11.6-14.8) % Plt Count 279 (150-400) X10^3/uL Neut % (Auto) 41.7 L (50-75) % Lymph % (Auto) 45.5 H (25-40) % [place] % (Auto) 6.8 (3-14) % Eos % (Auto) 5.3 H (2-4) % Baso % (Auto) 0.7 (0-2) % Neut # (Auto) 3100 (9183-1966) /uL Lymph # (Auto) 3400 (1960-8338) /uL [place] # (Auto) 500 (0-900) /uL Eos # (Auto) 400 (0-450) /uL Baso # (Auto) 100 (0-100) /uL Sodium 130 L (137-145) mmol/L Potassium 5.2 H (3.4-5.1) mmol/L Chloride 97 L (98-107) mmol/L Carbon Dioxide 22 (22-32) mmol/L BUN 53 H (7-17) mg/dL Creatinine 0.86 (0.52-1.04) mg/dL Estimated GFR > 60 (>60) mL/min BUN/Creatinine Ratio 61.6 H (6-22) Glucose 511 H* (70-100) mg/dL Hemoglobin A1c 12.9 H (4.0-6.0) % Calcium 9.8 (8.4-10.2) mg/dL [facility] Narrative Medical decision making narrative: Patient is hyperglycemic. Not in DKA. Most likely hyperglycemic because she did not take her insulin yesterday. Her A1c shows that she is very poorly controlled. Patient declined the oral pain medication. Only wanted IV pain medication. I told her that she could take her home medicine. Will have her follow-up with her primary provider. Discharge Plan Departure Patient Disposition: Home Clinical Impression: Hyperglycemia Instructions: DI for Hyperglycemia -- Adult Activity Restrictions/Additional Instructions: Your lab test today show that your blood sugar really isn't all that well controlled. You do need to follow-up with your primary doctor to discuss potentially changing your insulin regimen. For now continue to take all of your medications as directed. Prescriptions: No Action [nabumatin] 500 mg tablet 500 mg PO BID Qty: 0 gabapentin 300 mg capsule 900 cap PO QAM Patient Comments: TAKE THREE(3) CAPSULES BY MOUTH IN THE MORNING AND SIX(6) CAPSULES BY MOUTH AT BEDTIME DAILY NOTE CHANGE IN DIRECTIONS oxycodone 5 mg tablet 5 tab PO Q6H Patient Comments: Take (1) tab by mouth every (6) hours as needed for severe pain (No more than 4 /24 hr) for up to 28 days. release 11/05/21 start on 11/07/21 must last to 12/05/21. amitriptyline 50 mg tablet 50 tab PO 3XD Patient Comments: TAKE ONE(1) TABLET BY MOUTH ONCE DAILY AT BEDTIME atorvastatin 20 mg tablet 20 tab PO BEDTIME Patient Comments: TAKE ONE(1) TABLET BY MOUTH ONCE DAILY citalopram 40 mg tablet 40 tab PO DAILY Patient Comments: TAKE ONE(1) TABLET BY MOUTH ONCE DAILY THESE ARE 40MG TABLETS azelastine 137 mcg (0.1 %) aerosol,spray 137 spray INTRANASAL PRN PRN (Reason: Allergy Symptoms) Patient Comments: SPRAY ONE(1) SPRAY INTO EACH NOSTRIL TWO(2) TIMES DAILY propranolol 10 mg tablet 10 tab PO TID PRN (Reason: Anxiety) Patient Comments: TAKE ONE(1) TABLET BY MOUTH THREE(3) TIMES DAILY NEEDED FOR ANXIETY tizanidine 2 mg tablet 2 tab PO Q8H PRN (Reason: Muscle Spasm) Patient Comments: TAKE ONE(1) TABLET BY MOUTH EVERY EIGHT(8) HOURS Januvia 25 mg tablet 25 tab PO DAILY Patient Comments: TAKE ONE(1) TABLET BY MOUTH ONCE DAILY Eliquis 5 mg tablet 5 tab PO BID Patient Comments: TAKE ONE(1) TABLET BY MOUTH TWO(2) TIMES DAILY gabapentin 300 mg Tablet 1,800 mg PO BEDTIME loratadine [Allergy Relief (loratadine)] 10 mg tablet 10 tab PO DAILY Patient Comments: TAKE ONE(1) TABLET BY MOUTH ONCE DAILY Jardiance 10 mg tablet 10 tab PO DAILY Patient Comments: TAKE ONE(1) TABLET BY MOUTH ONCE DAILY lisinopril-hydrochlorothiazide 20-12.5 mg tablet 20 tab PO DAILY Patient Comments: TAKE ONE(1) TABLET BY MOUTH ONCE DAILY Referrals: Karen Ortiz MD [Primary Care Provider] - Stand Alone Forms: Patient Portal/API
[2023-01-15 13:38] LABS: BUN Creatinine Ratio 61.6 (6-22); Blood Urea Nitrogen 53 mg/dL (7-17); Calcium 9.8 mg/dL (8.4-10.2); Carbon Dioxide 22 mmol/L (22-32); Chloride 97 mmol/L (98-107); Estimated Glomerular Filt Rate > 60 mL/min (>60); HEMOLYSIS 17 (0-50); Potassium 5.2 mmol/L (3.4-5.1); Sodium 130 mmol/L (137-145)
[2023-01-15 13:40] LABS: Glucose 511 mg/dL (70-100); Hemoglobin A1C% w Est Avg Glu 12.9 % (4.0-6.0)
--- NOTE | 2023-01-15 13:53 | PC.NURSE ---
Pt stated that she is experiencing abd pain but did not want to take PO pain medication that was ordered by provider. Pt experiences chronic abd pain and takes oxycodone 4-5 times/day. Pt said, I am not driving and I don't want to take any pain medication by mouth. I only want to take pain medication IV. Advised pt that we are only able to administer the medications that are ordered and we will speak to provider about different options for pain management. Dr Neri aware. No new orders at this time.
[2023-01-15 14:25] VITALS: BP 102/65; PULSE 62; RESP 20; O2SAT 99
== END 2023-01-15 14:20 | disposition home or self-care (01) ==
PROVIDERS: Emergency Provider Emergency Medicine; Family Provider Family Medicine; PCP Family Medicine
DX: E11.65 Type 2 diabetes mellitus with hyperglycemia (principal)
CPT/HCPCS: 36415; 76705; 80048; 82947; 83036; 85025; 99283; 99284

== ENCOUNTER → 2023-01-28 11:30 | Outpatient (CLI) | payer OTHER, MEDICAID, SELFPAY ==
[2021-11-16 01:42] VITALS: BMI 39.2
--- NOTE | 2023-01-28 | DI.CT.S_ITS ---
PROCEDURE: CT ABDOMEN PELVIS W CON INDICATIONS: Lower abdominal pain TECHNIQUE: After the administration of oral and intravenous contrast, axial sections were acquired from the lung bases to the pubic symphysis. Coronal and sagittal reformats were performed. For radiation dose reduction, the following was used: automated exposure control, adjustment of mA and/or kV according to patient size. COMPARISON:[facility], CT, ABDOMEN/PELVIS WITH CONTRAST, 05/31/2008, 20:30. FINDINGS: Image quality: Excellent. Lung bases: Lung bases are clear. Heart size is normal. The coronary arteries have atherosclerotic calcifications. Solid organs: Liver: The liver has no mass or intrahepatic biliary ductal dilatation. The portal vein and hepatic veins are patent. Biliary: The gallbladder has no gallstones, pericholecystic fluid, gallbladder wall thickening, or surrounding inflammatory change. Pancreas: The pancreas has no mass or ductal dilatation. There is no surrounding inflammation. Spleen: Normal size. There are no masses. Adrenals: No hypertrophy or nodules. Kidneys: No obstructive calculus or hydronephrosis. No solid mass. No cystic mass. Peritoneum and bowel: The distal esophagus and stomach are normal. The small bowel has a normal caliber and appearance. The terminal ileum is normal. The large bowel has a normal caliber and appearance. The appendix is not definitively visualized and therefore acute appendicitis cannot be excluded; however there are no secondary findings to suggest acute appendicitis. Surgical clips in the right lower quadrant likely due to prior appendectomy. No free fluid or air. Nodes and vessels: No retroperitoneal or mesenteric adenopathy by size criteria. Aorta and inferior vena cava are normal in size. Miscellaneous: No abdominal wall mass or hernia. PELVIS: Genitourinary: The bladder has no wall thickening or mass. No bladder calcifications. Bones: Degenerative changes with no focal abnormality. No vertebral body compression fractures. IMPRESSION: No acute abdominal or pelvic abnormality. Diverticulosis without evidence of acute diverticulitis. Dictated by: Parth Lisa M.D. on 01/28/2023 at 13:56 Approved by: Parth Lisa M.D. on 01/28/2023 at 14:02
== END ==
PROVIDERS: Family Provider Family Medicine; PCP Family Medicine; Referring Provider Family Medicine; Visit Provider Family Medicine
DX: K57.90 Diverticulosis of intestine, part unspecified, without perforation or abscess without bleeding (principal); R19.00 Intra-abdominal and pelvic swelling, mass and lump, unspecified site; R10.84 Generalized abdominal pain; R93.5 Abnormal findings on diagnostic imaging of other abdominal regions, including retroperitoneum
CPT/HCPCS: 74177; Q9967

== ENCOUNTER 2023-04-02 17:21 | Emergency (ER) | payer OTHER, MEDICAID, SELFPAY ==
[2021-11-16 01:42] VITALS: BMI 39.2
--- NOTE | 2023-04-02 17:32 | DI.RAD.S_ITS ---
PROCEDURE: XR CHEST 1V INDICATIONS: Eval for pneumonia TECHNIQUE: One view of the chest was acquired. COMPARISON: [facility], CR, XR CHEST 1V, 11/15/2021, 21:05. FINDINGS: Surgical changes and devices: None. Lungs and pleura: Lungs are clear. No pleural effusions or pneumothorax. Mediastinum: Mediastinal contours appear normal. Heart size is normal. Bones and chest wall: No suspicious bony lesions. Overlying soft tissues appear unremarkable. IMPRESSION: No acute cardiopulmonary abnormality is seen. Dictated by: Be Rubio M.D. on 04/02/2023 at 18:27 Approved by: Be Rubio M.D. on 04/02/2023 at 18:27
[2023-04-02 17:38] VITALS: BP 140/81; PULSE 125; RESP 20; TEMP 38.6; O2SAT 96; BMI 31.2
[2023-04-02] MEDS: ACETAMINOPHEN 325 MG TABLET 650 MG PO (17:58)
[2023-04-02] MEDS: SODIUM CHLORIDE 0.9% 1,000 ML 500 ML IV (17:59)
[2023-04-02 18:04] VITALS: PULSE 122; RESP 24; TEMP 38.1; O2SAT 98
[2023-04-02 18:04] LABS: COVID19 -Nasal RAPID POSITIVE (Negative)
--- NOTE | 2023-04-02 18:06 | ED.FEVER ---
HPI - Fever General Chief Complaint: Fever Stated Complaint: Sepsis Time Seen by Provider: 04/02/23 17:31 Source: patient and EMS Mode of arrival: EMS Limitations: no limitations History of Present Illness HPI Narrative: 53-year-old female with history of diabetes with neuropathy, hypertension, GERD and chronic pain who presents with complaint of fevers since Wednesday, 6 days. Patient has been taking Tylenol will improve and then returned. Patient has had a cough she states it has been mildly productive and clear. She is had some bilateral sinus discomfort. She denies any headache. She states she is had chest discomfort, cough, mild shortness of breath. No abdominal pain. She denies any myalgias. No syncope. No lightheadedness or dizziness. No nausea, no vomiting. No diarrhea or constipation, no dysuria, urgency or frequency. No new swelling of extremities. Rash or skin changes. Patient states she has not had any prior surgeries. States she is allergic to penicillin and sulfa. No tobacco, alcohol or illicit. Patient lives on [place]. Was brought over by airlift from [place] patient glucose was 181 earlier today with a lactate of 0.8 with EMS on [place]. Related Data Home Medications Medication Instructions Recorded Confirmed [nabumatin] 500 mg PO BID ##0 10/08/16 11/16/21 amitriptyline 50 mg tablet 50 tab PO 3XD insomnia 11/16/21 11/16/21 apixaban 5 mg tablet (Eliquis) 5 tab PO BID 11/16/21 11/16/21 atorvastatin 20 mg tablet 20 tab PO BEDTIME 11/16/21 11/16/21 azelastine 137 mcg (0.1 %) nasal 137 spray intranasal PRN PRN 11/16/21 11/16/21 spray aerosol Allergy Symptoms citalopram 40 mg tablet 40 tab PO DAILY 11/16/21 11/16/21 empagliflozin 10 mg tablet 10 tab PO DAILY 11/16/21 11/16/21 (Jardiance) gabapentin 300 mg capsule 900 cap PO QAM 11/16/21 11/16/21 gabapentin 300 mg tablet 1,800 mg PO BEDTIME 11/16/21 11/16/21 lisinopril 20 20 tab PO DAILY 11/16/21 11/16/21 mg-hydrochlorothiazide 12.5 mg tablet loratadine 10 mg tablet (Allergy 10 tab PO DAILY allergy 11/16/21 11/16/21 Relief (loratadine)) oxycodone 5 mg tablet 5 tab PO Q6H pain 11/16/21 11/16/21 propranolol 10 mg tablet 10 tab PO TID PRN Anxiety 11/16/21 11/16/21 sitagliptin phosphate 25 mg tablet 25 tab PO DAILY 11/16/21 11/16/21 (Januvia) tizanidine 2 mg tablet 2 tab PO Q8H PRN Muscle Spasm 11/16/21 11/16/21 Allergies Allergy/AdvReac Type Severity Reaction Status Date / Time latex [LATEX] Allergy Mild RASH Verified 01/15/23 12:44 Penicillins [PENICILLINS] Allergy Mild RASH Verified 01/15/23 12:44 sulfamethoxazole Allergy Mild NAUSEA AND Verified 01/15/23 12:44 [SULFAMETHOXAZOLE] VOMITING Review of Systems Review of Systems ROS Unobtainable: All systems reviewed & are unremarkable except as noted in HPI and below Patient History Medical History Hypertension Degenerative joint disease of cervical spine Diabetes Surgical History History of appendectomy Social History household members: none Smoking Status: Former smoker alcohol intake: never Smoking Status: Former smoker alcohol intake frequency: holidays/special occasions only Substance Use Type: does not use Exam Narrative Exam Narrative: GEN: well nourished, well appearing female, alert and oriented x 3, patient appears to be in mild distress. Patient is warm to the touch. HEENT: Atraumatic, pupils are equal round reactive to light, extraocular movements are intact, nares are clear, TMs are clear with no fluid, there is no conjunctival pallor. Throat is clear without any exudates, erythema, tonsillar enlargement or uvular deviation HEART: Heart rate is tachycardic but regular rate and rhythm without murmur, clicks, rubs. Pulses are equal in upper and lower extremities LUNGS:Lungs clear to auscultation, no wheezes, rales, crackles, chest moves symmetrically, no tachypnea or accessory muscle use. Patient does have persistent dry cough in the room. ABD:bowel sounds normal, soft, non-tender, no guarding, rebound, rigidity, no masses noted, no hepatosplenomegaly :No CVA tenderness MSCL: Non-tender, no muscle atrophy, muscles strength 5/5 upper and lower extremities, full range of motion, normal gait NEURO:CN 2-12 intact, sensation normal SKIN: No rash, erythema or other skin changes. Initial Vital Signs Initial Vital Signs: Vital Signs Temperature 101.5 F H 04/02/23 17:38 Pulse Rate 125 H 04/02/23 17:38 Respiratory Rate 20 04/02/23 17:38 Blood Pressure 140/81 04/02/23 17:38 Pulse Oximetry 96 04/02/23 17:38 Oxygen Delivery Method Room Air 04/02/23 17:38 Course Orders Ordered: ED Orders 04/02/23 17:32 XR chest 1V Stat 04/02/23 17:42 COVID19 -Nasal RAPID Stat 04/02/23 17:56 Complete Blood Count AUTO DIFF Stat Comprehensive Metabolic Panel Stat Lactate (Lactic Acid) Stat Lipase Stat Procalcitonin Stat 04/02/23 18:05 EKG-12 Lead Stat Discontinued Medications Acetaminophen (Acetaminophen 325 Mg Tablet) 650 mg PO NOW ONE Stop: 04/02/23 17:34 Last Admin: 04/02/23 17:58 Dose: 650 mg Documented By: JEANCARLOS Sodium Chloride (Normal Saline 0.9%) 1,000 mls @ 500 mls/hr IV BOLUS ONE Stop: 04/02/23 19:30 Last Admin: 04/02/23 17:59 Dose: 500 mls/hr Documented By: JEANCARLOS Ketorolac Tromethamine (Ketorolac 30 Mg/Ml Vial) 15 mg IV NOW ONE Stop: 04/02/23 18:20 Last Admin: 04/02/23 18:27 Dose: 15 mg Documented By: JEANCARLOS Vital Signs Vital signs: Vital Signs - 8 hr 04/02/23 17:38 04/02/23 18:04 04/02/23 18:27 Temperature 101.5 F H 100.5 F H Pulse Rate 125 H 122 H Respiratory Rate 20 24 Blood Pressure 140/81 157/99 H Pulse Oximetry 96 98 Oxygen Delivery Method Room Air 04/02/23 18:27 04/02/23 18:30 04/02/23 18:30 Temperature Pulse Rate 122 H 118 H Respiratory Rate 22 22 Blood Pressure 151/87 H Pulse Oximetry 98 95 Oxygen Delivery Method MDM - Fever Lab Data 04/02/23 17:56 04/02/23 17:56 Labs: Lab Results 04/02/23 04/02/23 Range/Units 17:42 17:56 WBC 7.8 (4.5-11.0) X10^3/uL RBC 5.08 (4.0-5.2) X10^6/uL Hgb 14.5 (12.0-16.0) g/dL Hct 43.3 (36-46) % MCV 85.2 (80-100) fL MCH 28.6 (26-34) PG MCHC 33.6 (30-36) % RDW 14.5 (11.6-14.8) % Plt Count 258 (150-400) X10^3/uL Neut % (Auto) 73.1 (50-75) % Lymph % (Auto) 17.1 L (25-40) % [place] % (Auto) 7.0 (3-14) % Eos % (Auto) 0.7 L (2-4) % Baso % (Auto) 2.1 H (0-2) % Neut # (Auto) 5700 (4707-4946) /uL Lymph # (Auto) 1300 (5101-0230) /uL [place] # (Auto) 500 (0-900) /uL Eos # (Auto) 100 (0-450) /uL Baso # (Auto) 200 H (0-100) /uL Sodium 136 L (137-145) mmol/L Potassium 4.2 (3.4-5.1) mmol/L Chloride 99 (98-107) mmol/L Carbon Dioxide 25 (22-32) mmol/L BUN 13 (7-17) mg/dL Creatinine 0.54 (0.52-1.04) mg/dL Estimated GFR > 60 (>60) mL/min BUN/Creatinine Ratio 24.1 H (6-22) Glucose 151 H (70-100) mg/dL Lactate 0.9 (0.7-2.1) mmol/L Calcium 10.1 (8.4-10.2) mg/dL Total Bilirubin 0.7 (0.2-1.3) mg/dL AST 34 (14-36) IU/L ALT 35 H (<35) IU/L Alkaline Phosphatase 94 (38-126) U/L Total Protein 7.6 (6.3-8.2) g/dL Albumin 4.3 (3.5-5.0) g/dL Globulin 3.3 (1.7-4.1) g/dL Albumin/Globulin Ratio 1.3 (1.0-2.8) Lipase 185 (23-300) U/L Procalcitonin 0.07 (<0.5) ng/mL SARS-CoV-2 (PCR) Positive H (Negative) Imaging Data Chest x-ray: Radiologist's Impression: [address] [address] XRay Report Signed Patient: Viktor Barron MR#: [id number] : 1970 Acct:[id number] Age/Sex: 53 / F Date of Service: 04/02/23 Loc: ED Accession Number: [id number] Procedure: XR chest 1V Ordering Provider: Jay Jay Neri D.O. PROCEDURE: XR CHEST 1V INDICATIONS: Eval for pneumonia TECHNIQUE: One view of the chest was acquired. COMPARISON: [facility], , XR CHEST 1V, 11/15/2021, 21:05. FINDINGS: Surgical changes and devices: None. Lungs and pleura: Lungs are clear. No pleural effusions or pneumothorax. Mediastinum: Mediastinal contours appear normal. Heart size is normal. Bones and chest wall: No suspicious bony lesions. Overlying soft tissues appear unremarkable. IMPRESSION: No acute cardiopulmonary abnormality is seen. Dictated by: Be Rubio M.D. on 04/02/2023 at 18:27 Approved by: Be Rubio M.D. on 04/02/2023 at 18:27 ECG Data Attestation: I personally reviewed and interpreted this ECG as follows: Interpretation: Sinus tachycardia rate of 121 FL 148 QRS is 70 QTC of 420. No acute ST elevation or depression noted. MDM Narrative Medical decision making narrative: This is a 53 old female with recent diagnosis of COVID swab at home on Wednesday she states she repeated it twice and was negative afterwards persistent fevers since med for the past 6 days with mild productive cough with clear sputum. Patient is warm to the touch, tachycardic, no hypotension, normal oxygenation. EKG shows sinus tach, chest x-ray shows no acute change. Patient received Tylenol, a L of fluids and Toradol fever is trending down words. Patient is still slightly tachycardic but trending down words appropriately, no hypoxia. Lab workup shows normal CBC glucose of 151, ALT of 35, other LFTs are normal with normal renal function. Negative lactate. Procalcitonin is negative. CBC shows normal white count, hemoglobin of 14.5 platelets of 258. Basophils are 2.1. Patient is COVID positive. Discussed with patient she has had some mild nausea at times she defers a prepack for Zofran. We discussed Tylenol ibuprofen symptomatic control. Discussed expected timeline with COVID infections. Return precautions. Discharge Plan Departure Patient Disposition: Home Clinical Impression: COVID-19 virus infection Instructions: DI for COVID-19 (Suspected or Confirmed ) Activity Restrictions/Additional Instructions: Please follow-up for recheck with your physician. You do continue to test positive for COVID today, your chest x-ray does not show any changes for pneumonia and your labs are appropriate. Please continue with Tylenol up to a 1000 mg every 6 hours and/or ibuprofen to 600 mg every 6 hours as tolerated. You can use [id number] cough and cold medications as needed. Please return for new or worsening changes, increasing chest pain or shortness of breath, passing out, persistent vomiting, black or bloody stools or other new or concerning changes. Prescriptions: No Action [nabumatin] 500 mg tablet 500 mg PO BID Qty: 0 gabapentin 300 mg capsule 900 cap PO QAM Patient Comments: TAKE THREE(3) CAPSULES BY MOUTH IN THE MORNING AND SIX(6) CAPSULES BY MOUTH AT BEDTIME DAILY NOTE CHANGE IN DIRECTIONS oxycodone 5 mg tablet 5 tab PO Q6H Patient Comments: Take (1) tab by mouth every (6) hours as needed for severe pain (No more than 4 /24 hr) for up to 28 days. release 11/05/21 start on 11/07/21 must last to 12/05/21. amitriptyline 50 mg tablet 50 tab PO 3XD Patient Comments: TAKE ONE(1) TABLET BY MOUTH ONCE DAILY AT BEDTIME atorvastatin 20 mg tablet 20 tab PO BEDTIME Patient Comments: TAKE ONE(1) TABLET BY MOUTH ONCE DAILY citalopram 40 mg tablet 40 tab PO DAILY Patient Comments: TAKE ONE(1) TABLET BY MOUTH ONCE DAILY THESE ARE 40MG TABLETS azelastine 137 mcg (0.1 %) aerosol,spray 137 spray INTRANASAL PRN PRN (Reason: Allergy Symptoms) Patient Comments: SPRAY ONE(1) SPRAY INTO EACH NOSTRIL TWO(2) TIMES DAILY propranolol 10 mg tablet 10 tab PO TID PRN (Reason: Anxiety) Patient Comments: TAKE ONE(1) TABLET BY MOUTH THREE(3) TIMES DAILY NEEDED FOR ANXIETY tizanidine 2 mg tablet 2 tab PO Q8H PRN (Reason: Muscle Spasm) Patient Comments: TAKE ONE(1) TABLET BY MOUTH EVERY EIGHT(8) HOURS Januvia 25 mg tablet 25 tab PO DAILY Patient Comments: TAKE ONE(1) TABLET BY MOUTH ONCE DAILY Eliquis 5 mg tablet 5 tab PO BID Patient Comments: TAKE ONE(1) TABLET BY MOUTH TWO(2) TIMES DAILY gabapentin 300 mg Tablet 1,800 mg PO BEDTIME loratadine [Allergy Relief (loratadine)] 10 mg tablet 10 tab PO DAILY Patient Comments: TAKE ONE(1) TABLET BY MOUTH ONCE DAILY Jardiance 10 mg tablet 10 tab PO DAILY Patient Comments: TAKE ONE(1) TABLET BY MOUTH ONCE DAILY lisinopril-hydrochlorothiazide 20-12.5 mg tablet 20 tab PO DAILY Patient Comments: TAKE ONE(1) TABLET BY MOUTH ONCE DAILY Referrals: Karen Ortiz MD [Primary Care Provider] - Stand Alone Forms: Patient Portal/API
[2023-04-02 18:14] LABS: Lipase 185 U/L (23-300)
[2023-04-02 18:15] LABS: Alanine Aminotransferase 35 IU/L (<35); Albumin 4.3 g/dL (3.5-5.0); Albumin Globulin Ratio 1.3 (1.0-2.8); Alkaline Phosphatase 94 U/L (38-126); Aspartate Aminotransferase 34 IU/L (14-36); BUN Creatinine Ratio 24.1 (6-22); Bilirubin Total 0.7 mg/dL (0.2-1.3); Blood Urea Nitrogen 13 mg/dL (7-17); Calcium 10.1 mg/dL (8.4-10.2); Carbon Dioxide 25 mmol/L (22-32); Chloride 99 mmol/L (98-107); Estimated Glomerular Filt Rate > 60 mL/min (>60); Globulin 3.3 g/dL (1.7-4.1); Glucose 151 mg/dL (70-100); HEMOLYSIS < 15 (0-50); Potassium 4.2 mmol/L (3.4-5.1); Sodium 136 mmol/L (137-145); Total Protein 7.6 g/dL (6.3-8.2)
[2023-04-02 18:16] LABS: Lactate (Lactic Acid) 0.9 mmol/L (0.7-2.1)
[2023-04-02 18:27] VITALS: BP 157/99; PULSE 122; RESP 22; O2SAT 98
[2023-04-02] MEDS: KETOROLAC 30 MG/ML VIAL 15 MG IV (18:27)
[2023-04-02 18:30] VITALS: BP 151/87; PULSE 118; RESP 22; O2SAT 95
[2023-04-02 18:31] LABS: Add Manual Diff / Slide Review NO; Basophils Absolute Auto 200 /uL (0-100); Basophils Percent Auto 2.1 % (0-2); Eosinophils Absolute Auto 100 /uL (0-450); Eosinophils Percent Auto 0.7 % (2-4); Hematocrit 43.3 % (36-46); Hemoglobin 14.5 g/dL (12.0-16.0); Lymphocytes Absolute Auto 1300 /uL (1100-4500); Lymphocytes Percent Auto 17.1 % (25-40); Mean Corpuscular HGB Conc 33.6 % (30-36); Mean Corpuscular Hemoglobin 28.6 PG (26-34); Mean Corpuscular Volume 85.2 fL (80-100); Monocytes Absolute Auto 500 /uL (0-900); Neutrophils Absolute Auto 5700 /uL (1500-7000); Neutrophils Percent Auto 73.1 % (50-75); Platelet Count 258 X10^3/uL (150-400); Red Blood Cell Count 5.08 X10^6/uL (4.0-5.2); Red Cell Distribution Width 14.5 % (11.6-14.8); White Blood Cell Count 7.8 X10^3/uL (4.5-11.0)
[2023-04-02 18:32] LABS: Procalcitonin 0.07 ng/mL (<0.5)
== END 2023-04-02 19:03 | disposition home or self-care (01) ==
PROVIDERS: Emergency Medicine; Emergency Provider Emergency Medicine; Family Provider Family Medicine; PCP Family Medicine
DX: U07.1 COVID-19 (principal); R03.0 Elevated blood-pressure reading, without diagnosis of hypertension
CPT/HCPCS: 36415; 71045; 80053; 83605; 83690; 84145; 85025; 87635; 93005; 99284; C9803; J1885

== ENCOUNTER → 2023-04-15 10:39 | Outpatient (CLI) | payer OTHER, MEDICAID, SELFPAY ==
[2021-11-16 01:42] VITALS: BMI 39.2
--- NOTE | 2023-04-15 | DI.US.S_ITS ---
PROCEDURE: US PERIPH VENOUS LOW EXTREM RT INDICATIONS: Pain in right leg TECHNIQUE: Real-time imaging, as well as color and pulse Doppler interrogation, were performed of the lower extremity deep veins from the inguinal ligament to the popliteal fossa, with documentation of the visualized calf veins. COMPARISON: None. FINDINGS: Extensive right lower extremity deep venous thrombosis can be seen extending from the common femoral vein through the calf veins. There is extensive involvement the greater saphenous vein from the greater saphenous vein from proximally to the level of the knee. The profunda femoris vein does not appear to be affected. IMPRESSION: Extensive right lower extremity deep venous thrombosis and superficial venous thrombosis. Note: Concordant preliminary findings given by the board of directors upon the completion of the examination to Dr. Perez. Dictated by: Yobani Mccormack M.D. on 04/15/2023 at 10:57 Approved by: Yobani Mccormack M.D. on 04/15/2023 at 11:01
== END ==
PROVIDERS: Family Provider Family Medicine; PCP Family Medicine; Referring Provider Nurse Practitioner; Visit Provider Nurse Practitioner
DX: I82.411 Acute embolism and thrombosis of right femoral vein (principal); M79.604 Pain in right leg
CPT/HCPCS: 93971

== ENCOUNTER 2023-04-15 11:30 | Emergency (ER) | payer OTHER, MEDICAID, SELFPAY ==
[2021-11-16 01:42] VITALS: BMI 39.2
[2023-04-15] VITALS (9 sets, daily range): BP systolic 109–134; BP diastolic 66–81; PULSE 110–128; RESP 15–28; TEMP 37.1; O2SAT 93–97; BMI 29.2
--- NOTE | 2023-04-15 11:43 | DI.CT.S_ITS ---
PROCEDURE: CT ANGIO CHEST PE PROTOCOL INDICATIONS: chest tightness/+DVT TECHNIQUE: After the administration of intravenous contrast, 2 mm thick sections acquired from the pulmonary apices to the posterior costophrenic angles. 3-dimensional maximum intensity projection (MIP) coronal and sagittal reformats were then acquired through the thorax. For radiation dose reduction, the following was used: automated exposure control, adjustment of mA and/or kV according to patient size. COMPARISON: [facility], CT, CT ANGIO CHEST PE PROTOCOL, 11/17/2021, 10:17. FINDINGS: Image quality: Diagnostic. Pulmonary arteries: Pulmonary arteries are normal in size, and demonstrate no intraluminal filling defects to suggest central pulmonary embolism. Lungs and pleura: Lungs are clear. No pleural effusions or pneumothorax. Central and peripheral airways are patent. Mediastinum: Heart size is normal, without pericardial effusion. Calcification of the coronary vasculature. No mediastinal or hilar adenopathy. Thoracic aorta is normal in caliber and enhancement. Esophagus is normal in caliber, without hiatal hernia. Bones and chest wall: No suspicious bony lesions. Ribs and thoracic spine appear intact throughout. No axillary or supraclavicular adenopathy. Heterogeneously enhancing 25 mm diameter left thyroid mass, as before. Upper Abdomen: Visualized upper abdominal solid organs appear normal in the early arterial phase of enhancement. IMPRESSION: 1. No pulmonary embolus. 2. Coronary artery disease. 3. No acute process. Dictated by: Moises Bain M.D. on 04/15/2023 at 12:27 Approved by: Moises Bain M.D. on 04/15/2023 at 12:29
[2023-04-15 12:15] LABS: Add Manual Diff / Slide Review NO; Basophils Absolute Auto 100 /uL (0-100); Basophils Percent Auto 0.6 % (0-2); Eosinophils Absolute Auto 200 /uL (0-450); Eosinophils Percent Auto 1.8 % (2-4); Hematocrit 42.8 % (36-46); Hemoglobin 14.6 g/dL (12.0-16.0); Lymphocytes Absolute Auto 3300 /uL (1100-4500); Lymphocytes Percent Auto 34.5 % (25-40); Mean Corpuscular HGB Conc 34.1 % (30-36); Mean Corpuscular Hemoglobin 29.3 PG (26-34); Mean Corpuscular Volume 86.1 fL (80-100); Monocytes Absolute Auto 500 /uL (0-900); Monocytes Percent Auto 4.8 % (3-14); Neutrophils Absolute Auto 5500 /uL (1500-7000); Neutrophils Percent Auto 58.3 % (50-75); Platelet Count 295 X10^3/uL (150-400); Red Blood Cell Count 4.97 X10^6/uL (4.0-5.2); Red Cell Distribution Width 15.1 % (11.6-14.8); White Blood Cell Count 9.5 X10^3/uL (4.5-11.0)
[2023-04-15 12:20] LABS: PTT Partial Thromboplastin Tim 26 SECONDS (25.1-36.5)
[2023-04-15 12:32] LABS: Alanine Aminotransferase 32 IU/L (<35); Albumin 4.6 g/dL (3.5-5.0); Albumin Globulin Ratio 1.1 (1.0-2.8); Alkaline Phosphatase 154 U/L (38-126); Aspartate Aminotransferase 25 IU/L (14-36); BUN Creatinine Ratio 54.4 (6-22); Bilirubin Total 0.9 mg/dL (0.2-1.3); Blood Urea Nitrogen 37 mg/dL (7-17); Calcium 10.6 mg/dL (8.4-10.2); Carbon Dioxide 28 mmol/L (22-32); Chloride 93 mmol/L (98-107); Creatine Kinase 39 U/L (30-135); Estimated Glomerular Filt Rate > 60 mL/min (>60); Globulin 4.1 g/dL (1.7-4.1); Glucose 351 mg/dL (70-100); HEMOLYSIS < 15 (0-50); Lipase 227 U/L (23-300); Magnesium 2.2 mg/dL (1.6-2.3); Potassium 4.2 mmol/L (3.4-5.1); Sodium 133 mmol/L (137-145); Total Protein 8.7 g/dL (6.3-8.2)
--- NOTE | 2023-04-15 12:35 | ED.CHESTPAIN ---
HPI - Chest Pain General Chief Complaint: Chest Pain Stated Complaint: sent from DI for Blood Clot in R/leg Time Seen by Provider: 04/15/23 12:34 Source: patient Mode of arrival: Ambulatory Limitations: no limitations History of Present Illness HPI narrative: Patient is a 53-year-old year old female history of diabetes hypertension previous DVTs presenting today with right leg pain. She reports that she is previously had multiple DVTs in that leg she started noticing pain about 10-12 days ago. She had an outpatient ultrasound done which was positive for DVT was told to come to the ED. She also reports that she was diagnosed with COVID about 3 weeks ago. He is had continued cough and some tightness in her chest. She is noted to be tachycardic but afebrile. She is complaining mostly of pain in her right thigh which is where she is previously had pain and DVTs before. She has not like being on anticoagulation after every DVT she has gotten off of it. It is unclear why she is previously had DVTs. No history of pulmonary embolism. Related Data Home Medications Medication Instructions Recorded Confirmed [nabumatin] 500 mg PO BID ##0 10/08/16 11/16/21 amitriptyline 50 mg tablet 50 tab PO 3XD insomnia 11/16/21 11/16/21 apixaban 5 mg tablet (Eliquis) 5 tab PO BID 11/16/21 11/16/21 atorvastatin 20 mg tablet 20 tab PO BEDTIME 11/16/21 11/16/21 azelastine 137 mcg (0.1 %) nasal 137 spray intranasal PRN PRN 11/16/21 11/16/21 spray aerosol Allergy Symptoms citalopram 40 mg tablet 40 tab PO DAILY 11/16/21 11/16/21 empagliflozin 10 mg tablet 10 tab PO DAILY 11/16/21 11/16/21 (Jardiance) gabapentin 300 mg capsule 900 cap PO QAM 11/16/21 11/16/21 gabapentin 300 mg tablet 1,800 mg PO BEDTIME 11/16/21 11/16/21 lisinopril 20 20 tab PO DAILY 11/16/21 11/16/21 mg-hydrochlorothiazide 12.5 mg tablet loratadine 10 mg tablet (Allergy 10 tab PO DAILY allergy 11/16/21 11/16/21 Relief (loratadine)) oxycodone 5 mg tablet 5 tab PO Q6H pain 11/16/21 11/16/21 propranolol 10 mg tablet 10 tab PO TID PRN Anxiety 11/16/21 11/16/21 sitagliptin phosphate 25 mg tablet 25 tab PO DAILY 11/16/21 11/16/21 (Januvia) tizanidine 2 mg tablet 2 tab PO Q8H PRN Muscle Spasm 11/16/21 11/16/21 Previous Rx's Medication Instructions Recorded apixaban 5 mg (74 tabs) tablets in 5 mg PO BID #74 ea 04/15/23 a dose pack Allergies Allergy/AdvReac Type Severity Reaction Status Date / Time latex [LATEX] Allergy Mild RASH Verified 01/15/23 12:44 Penicillins [PENICILLINS] Allergy Mild RASH Verified 01/15/23 12:44 sulfamethoxazole Allergy Mild NAUSEA AND Verified 01/15/23 12:44 [SULFAMETHOXAZOLE] VOMITING Patient History Medical History Hypertension Degenerative joint disease of cervical spine Diabetes Surgical History History of appendectomy Social History household members: none Smoking Status: Former smoker alcohol intake: never Smoking Status: Former smoker alcohol intake frequency: holidays/special occasions only Substance Use Type: does not use Exam Initial Vital Signs Initial Vital Signs: Vital Signs Temperature 98.8 F 04/15/23 11:34 Pulse Rate 120 H 04/15/23 11:34 Respiratory Rate 18 04/15/23 11:34 Blood Pressure 125/66 04/15/23 11:34 Pulse Oximetry 96 04/15/23 11:34 Oxygen Delivery Method Room Air 04/15/23 11:34 GENERAL: Alert pleasant 53-year-old female and in no acute distress. HEENT: Head atraumatic,EOMI, pupils reactive, face symmetric, moist mucous membranes CARDIOVASCULAR: Tachycardic regular RESPIRATORY: Breath sounds equal bilaterally, no wheezes rales or rhonchi. ABDOMEN: Soft, nontender. Normoactive bowel sounds all 4 quadrants. No guarding or rebound. EXTREMITIES: Normal range of motion, no clubbing or edema. Neurovascularly intact Significant swelling distal pedal pulse present bilaterally pain in right thigh NEUROLOGICAL: Alert and oriented x4.Normal gait and speech. SKIN: Warm, dry, no laceration, no petechiae, no rashes or lesions. Course Orders Ordered: ED Orders 04/15/23 11:43 CT angio chest PE protocol Stat 04/15/23 11:48 EKG-12 Lead Stat 04/15/23 11:57 Complete Blood Count AUTO DIFF Stat Comprehensive Metabolic Panel Stat Lipase Stat Magnesium Stat NT-proBNP (BNP-Adult 18+) Stat PTT Partial Thromboplastin Kem Stat Prothrombin Time INR Stat Troponin & CK Cardiac Panel Stat Discontinued Medications Apixaban (Apixaban 5 Mg Tablet) 10 mg PO NOW ONE Stop: 04/15/23 13:05 Last Admin: 04/15/23 13:21 Dose: 10 mg Documented By: Aspirin (Aspirin 81 Mg Chew Tab) 324 mg PO NOW ONE Stop: 04/15/23 11:44 Last Admin: 04/15/23 12:25 Dose: Not Given Documented By: Morphine Sulfate (Morphine 4 Mg/Ml Inj) 4 mg IV NOW ONE Stop: 04/15/23 12:36 Last Admin: 04/15/23 12:47 Dose: 4 mg Documented By: Vital Signs Vital signs: Vital Signs - 8 hr 04/15/23 11:55 04/15/23 11:55 04/15/23 11:56 Pulse Rate 128 H 127 H Respiratory Rate 17 15 Blood Pressure 112/70 Pulse Oximetry 97 04/15/23 11:56 04/15/23 12:00 04/15/23 12:00 Pulse Rate 121 H Respiratory Rate 20 Blood Pressure 112/76 116/81 Pulse Oximetry 97 04/15/23 12:20 04/15/23 12:20 04/15/23 12:30 Pulse Rate 119 H 116 H Respiratory Rate 18 23 Blood Pressure 134/71 Pulse Oximetry 97 94 04/15/23 12:30 04/15/23 13:00 04/15/23 13:00 Pulse Rate 115 H Respiratory Rate 21 Blood Pressure 133/71 134/77 Pulse Oximetry 95 04/15/23 13:30 04/15/23 13:46 04/15/23 13:46 Pulse Rate 120 H 110 H Respiratory Rate 28 H 24 Blood Pressure 109/68 Pulse Oximetry 94 93 MDM - Chest Pain Lab Data 04/15/23 11:57 04/15/23 11:57 Labs: Lab Results 04/15/23 Range/Units 11:57 WBC 9.5 (4.5-11.0) X10^3/uL RBC 4.97 (4.0-5.2) X10^6/uL Hgb 14.6 (12.0-16.0) g/dL Hct 42.8 (36-46) % MCV 86.1 (80-100) fL MCH 29.3 (26-34) PG MCHC 34.1 (30-36) % RDW 15.1 H (11.6-14.8) % Plt Count 295 (150-400) X10^3/uL Neut % (Auto) 58.3 (50-75) % Lymph % (Auto) 34.5 (25-40) % Carbon % (Auto) 4.8 (3-14) % Eos % (Auto) 1.8 L (2-4) % Baso % (Auto) 0.6 (0-2) % Neut # (Auto) 5500 (5265-2350) /uL Lymph # (Auto) 3300 (7481-9026) /uL Carbon # (Auto) 500 (0-900) /uL Eos # (Auto) 200 (0-450) /uL Baso # (Auto) 100 (0-100) /uL PT 11.0 (9.4-12.5) SECONDS INR 1.0 (0.9-1.3) APTT 26 (25.1-36.5) SECONDS Sodium 133 L (137-145) mmol/L Potassium 4.2 (3.4-5.1) mmol/L Chloride 93 L (98-107) mmol/L Carbon Dioxide 28 (22-32) mmol/L BUN 37 H (7-17) mg/dL Creatinine 0.68 (0.52-1.04) mg/dL Estimated GFR > 60 (>60) mL/min BUN/Creatinine Ratio 54.4 H (6-22) Glucose 351 H (70-100) mg/dL Calcium 10.6 H (8.4-10.2) mg/dL Magnesium 2.2 (1.6-2.3) mg/dL Total Bilirubin 0.9 (0.2-1.3) mg/dL AST 25 (14-36) IU/L ALT 32 (<35) IU/L Alkaline Phosphatase 154 H (38-126) U/L Total Creatine Kinase 39 (30-135) U/L Troponin I < 0.012 (0.01-0.034) ng/mL NT-Pro-B Natriuret Pep < 20 (<125) pg/mL Total Protein 8.7 H (6.3-8.2) g/dL Albumin 4.6 (3.5-5.0) g/dL Globulin 4.1 (1.7-4.1) g/dL Albumin/Globulin Ratio 1.1 (1.0-2.8) Lipase 227 (23-300) U/L Imaging Data CT scan - chest: Radiologist's Impression: PROCEDURE: CT ANGIO CHEST PE PROTOCOL INDICATIONS: chest tightness/+DVT TECHNIQUE: After the administration of intravenous contrast, 2 mm thick sections acquired from the pulmonary apices to the posterior costophrenic angles. 3-dimensional maximum intensity projection (MIP) coronal and sagittal reformats were then acquired through the thorax. For radiation dose reduction, the following was used: automated exposure control, adjustment of mA and/or kV according to patient size. COMPARISON: [facility], CT, CT ANGIO CHEST PE PROTOCOL, 11/17/2021, 10:17. FINDINGS: Image quality: Diagnostic. Pulmonary arteries: Pulmonary arteries are normal in size, and demonstrate no intraluminal filling defects to suggest central pulmonary embolism. Lungs and pleura: Lungs are clear. No pleural effusions or pneumothorax. Central and peripheral airways are patent. Mediastinum: Heart size is normal, without pericardial effusion. Calcification of the coronary vasculature. No mediastinal or hilar adenopathy. Thoracic aorta is normal in caliber and enhancement. Esophagus is normal in caliber, without hiatal hernia. Bones and chest wall: No suspicious bony lesions. Ribs and thoracic spine appear intact throughout. No axillary or supraclavicular adenopathy. Heterogeneously enhancing 25 mm diameter left thyroid mass, as before. Upper Abdomen: Visualized upper abdominal solid organs appear normal in the early arterial phase of enhancement. IMPRESSION: 1. No pulmonary embolus. 2. Coronary artery disease. 3. No acute process. Dictated by: Moises Bain M.D. on 04/15/2023 at 12:27 US - DVT: Radiologist's Impression: PROCEDURE: US PERIPH VENOUS LOW EXTREM RT INDICATIONS: Pain in right leg TECHNIQUE: Real-time imaging, as well as color and pulse Doppler interrogation, were performed of the lower extremity deep veins from the inguinal ligament to the popliteal fossa, with documentation of the visualized calf veins. COMPARISON: None. FINDINGS: Extensive right lower extremity deep venous thrombosis can be seen extending from the common femoral vein through the calf veins. There is extensive involvement the greater saphenous vein from the greater saphenous vein from proximally to the level of the knee. The profunda femoris vein does not appear to be affected. IMPRESSION: Extensive right lower extremity deep venous thrombosis and superficial venous thrombosis. Note: Concordant preliminary findings given by the ehr trainer upon the completion of the examination to Dr. Perez. Dictated by: Yobani Mccormack M.D. on 04/15/2023 at 10:57 ECG Data Interpretation: Normal sinus rhythm rate 124 MS interval [address] changes MDM Narrative Medical decision making narrative: Patient 53-year-old female with prior history of DVT not anticoagulated presents today with an outpatient ultrasound confirming DVT of right leg now having cough chest tightness. She is tachycardic having significant pain in her right leg. CT chest does not show any evidence of pulmonary embolism Blood work has been reviewed sodium 133 previously 136 no AKASH. Glucose is 351 without evidence of DKA, calcium slightly elevated 10.6 negative troponin, negative BNP. She at this time has no evidence of a pneumonia but has an extensive DVT in her right leg including great saphenous vein greater saphenous vein, extending from common femoral On exam she has good distal pedal pulses without mottling or cyanosis no significant swelling. He was given morphine for pain and started on Eliquis. He had no contraindication to anticoagulation she is aware of risks and benefits of being on anticoagulation. Discharge Plan Departure Patient Disposition: Home Clinical Impression: DVT (deep venous thrombosis) Instructions: DI for Deep Vein Thrombosis Activity Restrictions/Additional Instructions: *You have been diagnosed with DVT *What to do: At this time your like since start feeling better as the clot gets smaller. You are started on blood thinner. If you should experience bleeding apply pressure and ice to area. If you should fallen hit your head you need to be evaluated in the emergency department. If you have rectal bleeding should also be evaluated in the emergency department. *Continue to take medications as directed Eliquis 10 mg twice a day for 7 days then 5mg twice a day, you will likely need to be on this for ever Take your pain medications as prescribed *Follow up with your primary care provider in 2-3 days or call [phone] *Return to ER if you should have increasing pain swelling chest pain shortness of breath or any new, worsening or concerning symptoms Prescriptions: New apixaban 5 mg (74 tabs) tablets,dose pack 5 mg PO BID Qty: 74 0RF No Action [nabumatin] 500 mg tablet 500 mg PO BID Qty: 0 gabapentin 300 mg capsule 900 cap PO QAM Patient Comments: TAKE THREE(3) CAPSULES BY MOUTH IN THE MORNING AND SIX(6) CAPSULES BY MOUTH AT BEDTIME DAILY NOTE CHANGE IN DIRECTIONS oxycodone 5 mg tablet 5 tab PO Q6H Patient Comments: Take (1) tab by mouth every (6) hours as needed for severe pain (No more than 4 /24 hr) for up to 28 days. release 11/05/21 start on 11/07/21 must last to 12/05/21. amitriptyline 50 mg tablet 50 tab PO 3XD Patient Comments: TAKE ONE(1) TABLET BY MOUTH ONCE DAILY AT BEDTIME atorvastatin 20 mg tablet 20 tab PO BEDTIME Patient Comments: TAKE ONE(1) TABLET BY MOUTH ONCE DAILY citalopram 40 mg tablet 40 tab PO DAILY Patient Comments: TAKE ONE(1) TABLET BY MOUTH ONCE DAILY THESE ARE 40MG TABLETS azelastine 137 mcg (0.1 %) aerosol,spray 137 spray INTRANASAL PRN PRN (Reason: Allergy Symptoms) Patient Comments: SPRAY ONE(1) SPRAY INTO EACH NOSTRIL TWO(2) TIMES DAILY propranolol 10 mg tablet 10 tab PO TID PRN (Reason: Anxiety) Patient Comments: TAKE ONE(1) TABLET BY MOUTH THREE(3) TIMES DAILY NEEDED FOR ANXIETY tizanidine 2 mg tablet 2 tab PO Q8H PRN (Reason: Muscle Spasm) Patient Comments: TAKE ONE(1) TABLET BY MOUTH EVERY EIGHT(8) HOURS Januvia 25 mg tablet 25 tab PO DAILY Patient Comments: TAKE ONE(1) TABLET BY MOUTH ONCE DAILY Eliquis 5 mg tablet 5 tab PO BID Patient Comments: TAKE ONE(1) TABLET BY MOUTH TWO(2) TIMES DAILY gabapentin 300 mg Tablet 1,800 mg PO BEDTIME loratadine [Allergy Relief (loratadine)] 10 mg tablet 10 tab PO DAILY Patient Comments: TAKE ONE(1) TABLET BY MOUTH ONCE DAILY Jardiance 10 mg tablet 10 tab PO DAILY Patient Comments: TAKE ONE(1) TABLET BY MOUTH ONCE DAILY lisinopril-hydrochlorothiazide 20-12.5 mg tablet 20 tab PO DAILY Patient Comments: TAKE ONE(1) TABLET BY MOUTH ONCE DAILY Referrals: Karen Ortiz MD [Primary Care Provider] - Stand Alone Forms: Patient Portal/API
[2023-04-15 12:44] LABS: NT-proBNP (BNP-Adult 18+) < 20 pg/mL (<125); Troponin I < 0.012 ng/mL (0.01-0.034)
[2023-04-15] MEDS: MORPHINE 4 MG/ML INJ IV (12:47)
[2023-04-15] MEDS: APIXABAN 5 MG TABLET 10 MG PO (13:21)
== END 2023-04-15 14:04 | disposition home or self-care (01) ==
PROVIDERS: Emergency Provider Emergency Medicine; Family Provider Family Medicine; PCP Family Medicine
DX: I82.411 Acute embolism and thrombosis of right femoral vein (principal); M79.604 Pain in right leg
CPT/HCPCS: 36415; 71275; 80053; 82550; 83690; 83735; 83880; 84484; 85025; 85610; 85730; 93005; 93010; 93971; 96374; 99284; J2270; Q9967

== ENCOUNTER → 2025-01-19 12:37 | Outpatient (CLI) | payer OTHER, SELFPAY ==
[2021-11-16 01:42] VITALS: BMI 39.2
--- NOTE | 2025-01-19 12:39 | DI.ECHO.S_ITS ---
[facility] : : [address] : : [place] : : [id number] : : Phone: [phone] Echocardiogram Report + + :Name: JULIO ELENA Study Date: 01/19/2025 Height: 60.5 in: :[facility] ReadingLocation: Weight: 142 lb : : Gender: Female BSA: 1.6 m2 : :: 1970 Age: 55 yrs BP: 142/97 mmHg: :Reason For Study: RE-EVAL PULMONARY HYPERTENSION AND RV : :FUNCTION : :Ordering Physician: ZAHRA, : :ANUJA Performed By: Tasha Wiley : :Referring: ANUJA SWEENEY : + + Interpretation Summary A two-dimensional transthoracic echocardiogram was performed in limited views only to assess pulmonary hypertension.. Left ventricular ejection fraction is estimated to be 50 +/- 5%. The interventricular septum is flattened, consistent with a right ventricular pressure/volume condition. Right ventricular systolic function is mild to moderately reduced. The right ventricle is mildly dilated. The right ventricular systolic pressure is estimated to be at least 41 mmHg based on an estimated right atrial pressure of 8 mm Hg. Procedure: A two-dimensional transthoracic echocardiogram was performed in limited views only to assess pulmonary hypertension.. The study quality was technically adequate. There is a prior available for comparison on Care Everywhere, dated 10/10/2024. The patient was in sinus tachycardia with heart rates between 102-110 bpm during the exam. Left Ventricle: The left ventricle is normal in size. There is normal left ventricular wall thickness. Left ventricular ejection fraction is estimated to be 50 +/- 5%. The interventricular septum is flattened, consistent with a right ventricular pressure/volume condition. Right Ventricle: The right ventricle is mildly dilated. Right ventricular systolic function is mild to moderately reduced. Tricuspid Valve: The tricuspid valve leaflets are thin and pliable. There is mild to moderate tricuspid regurgitation. The right ventricular systolic pressure is estimated to be at least 41 mmHg based on an estimated right atrial pressure of 8 mm Hg. There is moderate pulmonary hypertension. Pulmonic Valve: The pulmonic valve is not well seen, but is grossly normal. There is mild pulmonic regurgitation. Great Vessels: The IVC is dilated (diameter is greater than 2.1 cm) yet it collapses greater than 50% with a sniff. This suggests a right atrial pressure of 8 mm Hg. Pericardium/ Pleura There is no pericardial effusion. There is no pleural effusion. MMode/2D Measurements & Calculations LVIDd: 4.3 cm IVC diam: 2.6 cm LVIDs: 2.8 cm RVDd major: 9.8 cm FS: 34.2 % IVSd: 0.82 cm LVPWd: 0.79 cm LV myers. diameter/BSA (cm/m^2): 2.6 LV sys. diameter/BSA (cm/m^2): 1.7 RVD1 (basal): 4.2 cm RVD2 (mid): 3.3 cm TAPSE: 1.4 cm Doppler Measurements & Calculations TR max jael: 287.3 cm/sec TR max P.0 mmHg PA pr(Accel): 50.7 mmHg Reading Physician:04:06 PM
== END ==
PROVIDERS: Family Provider Family Medicine; PCP Family Medicine; Referring Provider Internal Medicine; Visit Provider Internal Medicine
DX: I26.09 Other pulmonary embolism with acute cor pulmonale (principal); I27.20 Pulmonary hypertension, unspecified; I07.1 Rheumatic tricuspid insufficiency
CPT/HCPCS: 93307